=== PATIENT | female | born 1935 | race Caucasian/White ===

== ENCOUNTER → 2017-12-26 09:17 | Outpatient (BNVA) | payer MEDICARE, BC, SELFPAY | PROVIDERS: Visit Provider Nurse Practitioner Family | DX: R55 Syncope and collapse (principal); E83.42 Hypomagnesemia; Z45.018 Encounter for adjustment and management of other part of cardiac pacemaker; I12.9 Hypertensive chronic kidney disease with stage 1 through stage 4 chronic kidney disease, or unspecified chronic kidney disease; N18.3 Chronic kidney disease, stage 3 (moderate) | CPT/HCPCS: 93291; 99213 ==

== ENCOUNTER 2017-12-26 10:12 | Outpatient (CLI) | payer MEDICARE, BC, SELFPAY ==
[2017-12-26 11:20] LABS: Anion Gap 10.1 mmol/L (3-11); BUN 14 mg/dL (7-18); CO2 26.9 mmol/L (21.0-32.0); CREATININE 1.33 mg/dL (0.55-1.02); Calcium 9.4 mg/dL (8.5-10.1); Chloride 100 mmol/L (98-107); Glucose 141 mg/dL (70-100); Magnesium 1.4 mg/dL (1.8-2.4); Potassium 4.1 mmol/L (3.5-5.1); Sodium 137 mmol/L (136-145)
== END 2017-12-26 10:32 ==
PROVIDERS: PCP Nurse Practitioner Family; Visit Provider Nurse Practitioner Family
DX: I10 Essential (primary) hypertension (principal)
CPT/HCPCS: 36415; 80048; 93291; 83735; 99213

== ENCOUNTER 2018-02-16 22:08 | Emergency (ER) | payer MEDICARE, BC, SELFPAY ==
[2018-02-16 22:22] VITALS: BP 198/94; PULSE 94; RESP 18; TEMP 36.7; O2SAT 96
[2018-02-16 23:27] LABS: Absolute Eosinophil Count 0.05 k/cumm (0.0-0.7); Absolute Lymphocyte Count 0.49 k/cumm (1.2-3.4); Absolute Neutrophil Count 0.94 k/cumm (1.2-6.7); Eosinophils % 3.2; HCT 30.7 % (36.0-46.0); HGB 10.3 g/dL (12.0-15.5); Mean Corp. HGB Concentration 33.6 g/dL (32.0-36.0); Mean Corpuscular Hemoglobin 39.2 pg (27.0-33.0); Mean Corpuscular Volume 116.7 fL (80-95); Mean Platelet Volume 10.6 fL (8.0-11.0); Monocytes % 6.3; Neutrophils % 59.5; Platelet Count 147 x1000/uL (130-400); RBC 2.63 m/cumm (4.00-5.20); RBC Distribution Width 13.1 % (11.7-14.6)
--- NOTE | 2018-02-16 23:30 | W.ED.GENAD ---
Discharge Plan Disposition Patient Disposition: HOME Condition: Good Discharge Details Chief Complaint: Nausea/Vomit/Diar Clinical Impression: Nausea, vomiting and diarrhea, Hypomagnesemia, Leukopenia, Hypokalemia Primary Care Provider: Lindsay Diaz ED Provider: William Holguin [place] Meds and New Rx's Prescriptions: New ondansetron 4 mg tablet,disintegrating 4 mg PO QID PRN (Reason: nausea and vomiting) Qty: 5 RF: 0 Continue irbesartan 75 mg tablet 75 mg PO DAILY Qty: 135 RF: 3 magnesium L-lactate 84 mg tablet extended release 84 mg PO BID Qty: 180 RF: 3 cyanocobalamin (vitamin B-12) [Vitamin B-12] 1,000 MCG tablet 1,000 mcg PO DAILY RF: 0 calcium carbonate 500 MG tablet 4 tab.chew PO DAILY RF: 0 vkofjvfs-hfmr-kmb-folic acid [One Daily For Women] 1 EACH tablet 1 ea PO DAILY RF: 0 ascorbic acid (vitamin C) [Vitamin C] 500 MG tablet 500 mg PO DAILY RF: 0 cholecalciferol (vitamin D3) [Vitamin D3] 2,000 UNIT capsule 2,000 unit PO DAILY RF: 0 hydrochlorothiazide 25 MG tablet 25 mg PO DAILY Qty: 90 RF: 4 ibuprofen [Advil Liqui-Gel] 200 MG capsule 200 - 400 mg PO Q4H PRN PRNQty: 100 RF: 0 ranitidine HCl [Zantac] 150 mg Tablet 150 mg PO DAILY RF: 0 Discharge Instructions Instructions: Hypokalemia (ED), Acute Nausea and Vomiting (ED), Hypomagnesemia (ED) Additional Instructions: You may use Zofran as needed for nausea and vomiting. As long as you can drink fluids and stay hydrated you should do okay. If you develop high fever, persistent vomiting, abdominal pain or bloody diarrhea you should return. Follow-up with primary care next week. He will white blood cell count was a little lower than usual and should be rechecked in 1-2 weeks when you are feeling better. Referrals: Lindsay Diaz, [employer] SAFETY INSPECTOR [Primary Care Provider] - Medical Decision Making Patient here with complaint of nausea, vomiting, diarrhea today. She feels a little bit weak. There has been no fever. She has no abdominal pain. Her abdominal exam is benign. She has no chest pain or shortness of breath. We will go ahead and place an IV and give some fluid. We will check her labs and EKG. Will give Zofran for nausea. Patient laboratory studies significant for hypokalemia and hypomagnesia, both of which she has had previously. She is also leukopenic and anemia again both are chronic. Her ANC is a little lower than normal but she likely has viral gastroenteritis so this would not be unexpected. Troponin is negative. EKG is unchanged. Stool was obtained and is negative for C. difficile. Patient has had no emesis here. We will do a p.o. challenge. We will replace her magnesium and potassium IV. No indication for admission at this point. She has no abdominal pain. Can be discharged home once her electrolyte replacement therapy has finished. Medical Records Medical records reviewed: Yes I reviewed the patient's medical records. Lab Data Lab results reviewed: Yes I reviewed the patient's lab results. ECG Data Attestation: I personally reviewed and interpreted this ECG (s) as follows: Prior ECG tracings: available for review Interpretation: Normal sinus rhythm at a rate of 87. Normal axis and intervals. She has nonspecific ST changes and depression not significantly different from prior dated 06/01/2015. HPI General Mode of arrival: wheelchair. Date/Time Provider Initiated Documentation: 02/16/18 23:19. Limitations to Documentation: no limitations. Information obtained by: patient, family and old records reviewed. HPI Narrative: Patient is brought in by daughter for evaluation of nausea, vomiting, diarrhea today. Patient had one episode of emesis in the morning around 4. 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 During the rest of the day she seemed to be okay. This evening around 6 had another episode of emesis after she tried to take her nighttime medications. She then began having diarrhea again. Diarrhea was watery nonbloody. Vomit was nonbloody. She has no fevers or chills. She has no abdominal pain. She has no chest pain or shortness of breath. She feels a little bit weak. She has not been on antibiotics recently. She has not been around anyone ill she is aware of. She did participate in Thanksgiving dinner yesterday but no one else who ate with her is ill. There is been no travel. Related Data Home Medications Medication Instructions Recorded Confirmed calcium carbonate 4 tab.chew PO DAILY 06/19/12 02/16/18 cyanocobalamin (vitamin B-12) 1,000 mcg PO DAILY 06/19/12 02/16/18 [Vitamin B-12] sauxezjl-ajwx-mvw-folic acid [One 1 ea PO DAILY 06/19/12 02/16/18 Daily For Women] ibuprofen [Advil Liqui-Gel] 200 - 400 mg PO Q4H PRN PRN #100 06/03/15 01/24/18 cap ascorbic acid (vitamin C) [Vitamin 500 mg PO DAILY 07/30/15 02/16/18 C] cholecalciferol (vitamin D3) 2,000 unit PO DAILY 07/30/15 02/16/18 [Vitamin D3] hydrochlorothiazide 25 mg PO DAILY #90 tab-cap 05/30/17 02/16/18 irbesartan 75 mg tablet 75 mg PO DAILY #135 tab-cap 12/26/17 02/16/18 magnesium L-lactate ER 84 mg 84 mg PO BID #180 tab 12/26/17 02/16/18 tablet,extended release ranitidine HCl [Zantac] 150 mg PO DAILY 02/16/18 02/16/18 ondansetron 4 mg PO QID PRN #5 tab 02/17/18 Previous Rx's Medication Instructions Recorded ibuprofen [Advil Liqui-Gel] 200 - 400 mg PO Q4H PRN PRN #100 06/03/15 cap hydrochlorothiazide 25 mg PO DAILY #90 tab-cap 05/30/17 irbesartan 75 mg tablet 75 mg PO DAILY #135 tab-cap 12/26/17 magnesium L-lactate ER 84 mg 84 mg PO BID #180 tab 12/26/17 tablet,extended release ondansetron 4 mg PO QID PRN #5 tab 02/17/18 Allergies Allergy/AdvReac Type Severity Reaction Status Date / Time alendronate sodium AdvReac Intermediate Polymyalgia Unverified 02/16/18 22:25 amlodipine AdvReac Intermediate Peridontal Unverified 02/16/18 22:25 disease metoclopramide AdvReac Intermediate Shaky Unverified 02/16/18 22:25 metoprolol AdvReac Intermediate dizzy, Unverified 02/16/18 22:25 sore gums chlorthalidone AdvReac Unknown n/v Unverified 02/16/18 22:25 lisinopril AdvReac Unknown unknown rxn Unverified 02/16/18 22:25 Sulfa (Sulfonamide AdvReac Unknown Yeast Unverified 02/16/18 22:25 Antibiotics) Infection General Stated Complaint: Nausea/Vomit/Diar NATHANIEL: 2 Review of Systems Constitutional Denies chills, Denies fatigue, Denies fever(s), Reports headache(s) (mild), Reports malaise, Reports poor appetite and Reports weakness Eyes Denies eye discharge and Denies eye pain ENT Denies otalgia, Denies facial pain, Reports headache(s) (mild), Denies sinus pain and Denies sore throat Cardiovascular Denies chest pain, Denies diaphoresis, Denies syncope, Denies rapid heart rate, Reports pedal edema, Denies palpitations and Denies dyspnea Respiratory Denies chest congestion, Denies cough and Denies dyspnea Gastrointestinal Denies abdominal pain, Denies melena, Denies hematochezia, Reports diarrhea, Reports nausea, Reports vomiting and Denies hematemesis Genitourinary Denies dysuria and Denies flank pain Musculoskeletal Denies back pain, Denies myalgias and Denies arthralgias Integumentary/Breasts Denies rash and Reports sores Neurologic Denies confusion, Denies syncope, Reports headache(s) (mild), Denies focal weakness, Denies sensory deficit and Reports weakness Psychiatric Denies confusion Endocrine Denies fatigue and Denies palpitations PFSH Family History Father Heart disease Medical History Osteoporosis, unspecified (Chronic 07/01/11) Leukopenia (Chronic 06/06/14) Humeral fracture (Chronic 06/04/15) Syncope (Chronic 02/10/14) Hypomagnesemia (Chronic 07/04/14) Hyperlipidemia (Chronic 07/01/11) Essential hypertension (Chronic 12/20/12) Esophageal reflux (Chronic 07/01/11) Chronic kidney disease, stage III (moderate) (Chronic 07/24/12) HLD (hyperlipidemia) HTN (hypertension) Social History housing: house lives independently: Yes number of children: 4 current occupation: retired frequency: daily duration: < 15 minutes/day Smoking/Tobacco Use Status: Never alcohol intake: current alcohol intake frequency: 0-2 drinks per day substance use type: does not use Surgical History Extraction of cataract (Inactive 04/30/13) Pacemaker (Inactive 10/27/15) left eye (Inactive) Exam Const General: cooperative, comfortable and no acute distress Orientation: alert and oriented x3 HENWA Head: normocephalic and atraumatic Mouth: moist mucous membranes Eyes Conjunctivae: conjunctivae normal Sclera: sclerae normal Neck Neck: normal visual inspection, trachea midline and supple Resp Effort & Inspection: normal respiratory effort Auscultation: clear to auscultation bilaterally Cardio Rate: regular rate Rhythm: regular rhythm Heart Sounds: S1 normal and S2 normal Pulses: radial pulses present GI Inspection: normal to inspection and non-distended Palpation: soft, not firm, no guarding and nontender Auscultation: hyperactive bowel sounds Skin General skin exam: no erythema Rashes: no rashes Wounds: wounds noted (healing wound from skin cancer excision on right charles) Neuro General: alert, oriented x3, no focal motor deficits and CN's II-XI intact bilaterally Extrem General: no calf tenderness and pedal edema Course Vital Signs Temperature 98.1 F 02/16/18 22:22 Pulse 94 H 02/16/18 22:22 Respiratory Rate 18 02/16/18 22:22 Blood Pressure 198/94 H 02/16/18 22:22 Pulse Oximetry 96 02/16/18 22:22 Temperature 98.1 F 02/16/18 22:22 Temperature Source Temporal Artery Scan 02/16/18 22:22 Pulse 94 H 02/16/18 22:22 Respiratory Rate 18 02/16/18 22:22 Respiratory Effort Non-Labored 02/16/18 22:27 Blood Pressure 198/94 H 02/16/18 22:22 Blood Pressure Position Sitting 02/16/18 22:22 Pulse Oximetry 96 02/16/18 22:22 Oxygen Delivery Method Room Air 02/16/18 22:22 Oxygen Flow Rate 0 02/16/18 22:22 Pain Level 0 02/16/18 22:22
[2018-02-16 23:31] LABS: White Blood Cell Count 1.58 k/cumm (4.4-10.8)
[2018-02-16] MEDS: Lactated Ringers 1,000 ML 1000 ML IV (23:37)
[2018-02-16] MEDS: Ondansetron 4 MG/2 ML VIAL IVP (23:37)
[2018-02-16 23:42] LABS: ALT 40 U/L (12-78); AST 36 U/L (15-37); Alkaline Phosphatase 65 U/L (46-116); BUN 17 mg/dL (7-18); Bilirubin, Total 0.8 mg/dL (0.2-1.0); CREATININE 1.28 mg/dL (0.55-1.02); Calcium 9.7 mg/dL (8.5-10.1); Chloride 100 mmol/L (98-107); Estimated GFR 39.92 (mL/min/1.73m2); Glucose 146 mg/dL (70-100); Magnesium 1.4 mg/dL (1.8-2.4); Potassium 3.1 mmol/L (3.5-5.1); Sodium 139 mmol/L (136-145); Total Protein 8.1 g/dL (6.4-8.2)
--- NOTE | 2018-02-16 23:46 | ED.GENADUL_ITS ---
Discharge Plan Disposition Patient Disposition: HOME Condition: Good Discharge Details Chief Complaint: Nausea/Vomit/Diar Clinical Impression: Nausea, vomiting and diarrhea, Hypomagnesemia, Leukopenia, Hypokalemia Primary Care Provider: Lindsay Diaz ED Provider: William Holguin [place] Meds and New Rx's Prescriptions: New ondansetron 4 mg tablet,disintegrating 4 mg PO QID PRN (Reason: nausea and vomiting) Qty: 5 RF: 0 Continue irbesartan 75 mg tablet 75 mg PO DAILY Qty: 135 RF: 3 magnesium L-lactate 84 mg tablet extended release 84 mg PO BID Qty: 180 RF: 3 cyanocobalamin (vitamin B-12) [Vitamin B-12] 1,000 MCG tablet 1,000 mcg PO DAILY RF: 0 calcium carbonate 500 MG tablet 4 tab.chew PO DAILY RF: 0 ohxvegzt-grin-dgp-folic acid [One Daily For Women] 1 EACH tablet 1 ea PO DAILY RF: 0 ascorbic acid (vitamin C) [Vitamin C] 500 MG tablet 500 mg PO DAILY RF: 0 cholecalciferol (vitamin D3) [Vitamin D3] 2,000 UNIT capsule 2,000 unit PO DAILY RF: 0 hydrochlorothiazide 25 MG tablet 25 mg PO DAILY Qty: 90 RF: 4 ibuprofen [Advil Liqui-Gel] 200 MG capsule 200 - 400 mg PO Q4H PRN PRNQty: 100 RF: 0 ranitidine HCl [Zantac] 150 mg Tablet 150 mg PO DAILY RF: 0 Discharge Instructions Instructions: Hypokalemia (ED), Acute Nausea and Vomiting (ED), Hypomagnesemia (ED) Additional Instructions: You may use Zofran as needed for nausea and vomiting. As long as you can drink fluids and stay hydrated you should do okay. If you develop high fever, persistent vomiting, abdominal pain or bloody diarrhea you should return. Follow-up with primary care next week. He will white blood cell count was a little lower than usual and should be rechecked in 1-2 weeks when you are feeling better. Referrals: Lindsay Diaz, UTILIZATION REVIEW RN [Primary Care Provider] - Medical Decision Making Patient here with complaint of nausea, vomiting, diarrhea today. She feels a little bit weak. There has been no fever. She has no abdominal pain. Her abdominal exam is benign. She has no chest pain or shortness of breath. We will go ahead and place an IV and give some fluid. We will check her labs and EKG. Will give Zofran for nausea. Patient laboratory studies significant for hypokalemia and hypomagnesia, both of which she has had previously. She is also leukopenic and anemia again both are chronic. Her ANC is a little lower than normal but she likely has viral gastroenteritis so this would not be unexpected. Troponin is negative. EKG is unchanged. Stool was obtained and is negative for C. difficile. Patient has had no emesis here. We will do a p.o. challenge. We will replace her magnesium and potassium IV. No indication for admission at this point. She has no abdominal pain. Can be discharged home once her electrolyte replacement therapy has finished. Medical Records Medical records reviewed: Yes I reviewed the patient's medical records. Lab Data Lab results reviewed: Yes I reviewed the patient's lab results. ECG Data Attestation: I personally reviewed and interpreted this ECG (s) as follows: Prior ECG tracings: available for review Interpretation: Normal sinus rhythm at a rate of 87. Normal axis and intervals. She has nonspecific ST changes and depression not significantly different from prior dated 06/01/2015. HPI General Mode of arrival: wheelchair . Date/Time Provider Initiated Documentation: 02/16/18 23:19 . Limitations to Documentation: no limitations . Information obtained by: patient, family and old records reviewed . HPI Narrative: Patient is brought in by daughter for evaluation of nausea, vomiting, diarrhea today. Patient had one episode of emesis in the morning around 4. 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 During the rest of the day she seemed to be okay. This evening around 6 had another episode of emesis after she tried to take her nighttime medications. She then began having diarrhea again. Diarrhea was watery nonbloody. Vomit was nonbloody. She has no fevers or chills. She has no abdominal pain. She has no chest pain or shortness of breath. She feels a little bit weak. She has not been on antibiotics recently. She has not been around anyone ill she is aware of. She did participate in Thanksgiving dinner yesterday but no one else who ate with her is ill. There is been no travel. Related Data Home Medications Medication Instructions Recorded Confirmed calcium carbonate 4 tab.chew PO DAILY 06/19/12 02/16/18 cyanocobalamin (vitamin B-12) 1,000 mcg PO DAILY 06/19/12 02/16/18 [Vitamin B-12] obypzcmz-afaz-nhb-folic acid [One 1 ea PO DAILY 06/19/12 02/16/18 Daily For Women] ibuprofen [Advil Liqui-Gel] 200 - 400 mg PO Q4H PRN PRN #100 06/03/15 01/24/18 cap ascorbic acid (vitamin C) [Vitamin 500 mg PO DAILY 07/30/15 02/16/18 C] cholecalciferol (vitamin D3) 2,000 unit PO DAILY 07/30/15 02/16/18 [Vitamin D3] hydrochlorothiazide 25 mg PO DAILY #90 tab-cap 05/30/17 02/16/18 irbesartan 75 mg tablet 75 mg PO DAILY #135 tab-cap 12/26/17 02/16/18 magnesium L-lactate ER 84 mg 84 mg PO BID #180 tab 12/26/17 02/16/18 tablet,extended release ranitidine HCl [Zantac] 150 mg PO DAILY 02/16/18 02/16/18 ondansetron 4 mg PO QID PRN #5 tab 02/17/18 Previous Rx's Medication Instructions Recorded ibuprofen [Advil Liqui-Gel] 200 - 400 mg PO Q4H PRN PRN #100 06/03/15 cap hydrochlorothiazide 25 mg PO DAILY #90 tab-cap 05/30/17 irbesartan 75 mg tablet 75 mg PO DAILY #135 tab-cap 12/26/17 magnesium L-lactate ER 84 mg 84 mg PO BID #180 tab 12/26/17 tablet,extended release ondansetron 4 mg PO QID PRN #5 tab 02/17/18 Allergies Allergy/AdvReac Type Severity Reaction Status Date / Time alendronate sodium AdvReac Intermediate Polymyalgia Unverified 02/16/18 22:25 amlodipine AdvReac Intermediate Peridontal Unverified 02/16/18 22:25 disease metoclopramide AdvReac Intermediate Shaky Unverified 02/16/18 22:25 metoprolol AdvReac Intermediate dizzy, Unverified 02/16/18 22:25 sore gums chlorthalidone AdvReac Unknown n/v Unverified 02/16/18 22:25 lisinopril AdvReac Unknown unknown rxn Unverified 02/16/18 22:25 Sulfa (Sulfonamide AdvReac Unknown Yeast Unverified 02/16/18 22:25 Antibiotics) Infection General Stated Complaint: Nausea/Vomit/Diar NATHANIEL: 2 Review of Systems Constitutional Denies chills, Denies fatigue, Denies fever(s), Reports headache(s) (mild), Reports malaise, Reports poor appetite and Reports weakness Eyes Denies eye discharge and Denies eye pain ENT Denies otalgia, Denies facial pain, Reports headache(s) (mild), Denies sinus pain and Denies sore throat Cardiovascular Denies chest pain, Denies diaphoresis, Denies syncope, Denies rapid heart rate, Reports pedal edema, Denies palpitations and Denies dyspnea Respiratory Denies chest congestion, Denies cough and Denies dyspnea Gastrointestinal Denies abdominal pain, Denies melena, Denies hematochezia, Reports diarrhea, Reports nausea, Reports vomiting and Denies hematemesis Genitourinary Denies dysuria and Denies flank pain Musculoskeletal Denies back pain, Denies myalgias and Denies arthralgias Integumentary/Breasts Denies rash and Reports sores Neurologic Denies confusion, Denies syncope, Reports headache(s) (mild), Denies focal weakness, Denies sensory deficit and Reports weakness Psychiatric Denies confusion Endocrine Denies fatigue and Denies palpitations PFSH Family History Father Heart disease Medical History Osteoporosis, unspecified (Chronic 07/01/11) Leukopenia (Chronic 06/06/14) Humeral fracture (Chronic 06/04/15) Syncope (Chronic 02/10/14) Hypomagnesemia (Chronic 07/04/14) Hyperlipidemia (Chronic 07/01/11) Essential hypertension (Chronic 12/20/12) Esophageal reflux (Chronic 07/01/11) Chronic kidney disease, stage III (moderate) (Chronic 07/24/12) HLD (hyperlipidemia) HTN (hypertension) Social History housing: house lives independently: Yes number of children: 4 current occupation: retired frequency: daily duration: < 15 minutes/day Smoking/Tobacco Use Status: Never alcohol intake: current alcohol intake frequency: 0-2 drinks per day substance use type: does not use Surgical History Extraction of cataract (Inactive 04/30/13) Pacemaker (Inactive 10/27/15) left eye (Inactive) Exam Const General: cooperative, comfortable and no acute distress Orientation: alert and oriented x3 HENNE Head: normocephalic and atraumatic Mouth: moist mucous membranes Eyes Conjunctivae: conjunctivae normal Sclera: sclerae normal Neck Neck: normal visual inspection, trachea midline and supple Resp Effort & Inspection: normal respiratory effort Auscultation: clear to auscultation bilaterally Cardio Rate: regular rate Rhythm: regular rhythm Heart Sounds: S1 normal and S2 normal Pulses: radial pulses present GI Inspection: normal to inspection and non-distended Palpation: soft, not firm, no guarding and nontender Auscultation: hyperactive bowel sounds Skin General skin exam: no erythema Rashes: no rashes Wounds: wounds noted (healing wound from skin cancer excision on right charles) Neuro General: alert, oriented x3, no focal motor deficits and CN's II-XI intact bilaterally Extrem General: no calf tenderness and pedal edema Course Vital Signs Temperature 98.1 F 02/16/18 22:22 Pulse 94 H 02/16/18 22:22 Respiratory Rate 18 02/16/18 22:22 Blood Pressure 198/94 H 02/16/18 22:22 Pulse Oximetry 96 02/16/18 22:22 Temperature 98.1 F 02/16/18 22:22 Temperature Source Temporal Artery Scan 02/16/18 22:22 Pulse 94 H 02/16/18 22:22 Respiratory Rate 18 02/16/18 22:22 Respiratory Effort Non-Labored 02/16/18 22:27 Blood Pressure 198/94 H 02/16/18 22:22 Blood Pressure Position Sitting 02/16/18 22:22 Pulse Oximetry 96 02/16/18 22:22 Oxygen Delivery Method Room Air 02/16/18 22:22 Oxygen Flow Rate 0 02/16/18 22:22 Pain Level 0 02/16/18 22:22
[2018-02-16 23:48] LABS: Macrocytosis 1+; Polychromasia Present; Troponin I < 0.02 ng/mL (0.00-0.06)
[2018-02-17] MEDS: MAGNESIUM SULFATE 2 GM/50 ML BAG IVPB (01:05)
[2018-02-17] MEDS: Acetaminophen 325 MG TAB 650 MG PO (01:10)
[2018-02-17] MEDS: POTASSIUM CHLORIDE 10 MEQ/100 ML BAG 100 MEQ IVPB (01:15)
[2018-02-17 07:07] LABS: Diff Comment Agrees w/ Instrument
== END 2018-02-17 02:43 | disposition home or self-care (01) ==
LOC: ER 02-17 02:46
PROVIDERS: Emergency Provider Emergency Medicine; PCP Nurse Practitioner
DX: R11.2 Nausea with vomiting, unspecified (principal); R19.7 Diarrhea, unspecified; E83.42 Hypomagnesemia; E87.6 Hypokalemia; D72.819 Decreased white blood cell count, unspecified; I12.9 Hypertensive chronic kidney disease with stage 1 through stage 4 chronic kidney disease, or unspecified chronic kidney disease; N18.3 Chronic kidney disease, stage 3 (moderate)
CPT/HCPCS: 36415; 80053; 93005; 96361; 96365; 96368; 96375; 99284; 83735; 84484; 85025; 87324; 93010; 99285; J2405; J3480

== ENCOUNTER 2018-02-19 11:26 | Emergency (ER) | payer MEDICARE, BC, SELFPAY ==
[2018-02-19 11:38] VITALS: BP 189/86; PULSE 103; RESP 18; TEMP 36; O2SAT 97
--- NOTE | 2018-02-19 12:18 | DI.CT_ITS ---
SYMPTOMS/DIAGNOSIS: EPIGASTRIC RIGHT UPPER QUADRANT AND LOWER ABDOMINAL PAIN CT OF THE ABDOMEN AND PELVIS: Images were performed from the lung bases through the ischial tuberosities after IV contrast. The exam is mildly limited by motion in the mid portion of the scan. The lungs show mild fibrotic changes. There is diffuse decreased attenuation of the liver consistent with fatty infiltration. There is motion at the level of the gallbladder. The gallbladder appeared normal on recent ultrasound. The duodenum is also not well evaluated due to motion. There are diverticula seen in the descending and sigmoid colon. There are no surrounding inflammatory changes. No small bowel dilatation is seen. The appendix appears normal. There is no free air or free fluid. The kidneys, pancreas and urinary bladder are unremarkable. The uterus and ovaries are also within normal limits. There is a small fatty-containing umbilical hernia. The aorta shows calcification and is normal in diameter. IMPRESSION: Diverticulosis without evidence of diverticulitis. Fatty infiltration of the liver. The pancreas, gallbladder and duodenum are not well evaluated due to motion.
--- NOTE | 2018-02-19 12:26 | ED.GENADUL_ITS ---
Discharge Plan Disposition Patient Disposition: HOME Condition: Improving Discharge Details Chief Complaint: Nausea/Vomit/Diar Clinical Impression: Vomiting and diarrhea Primary Care Provider: Lindsay Diaz ED Provider: Ariadna Clayton Home Meds and New Rx's Prescriptions: New ondansetron HCl [Zofran] 4 mg tablet 4 mg PO TID PRN (Reason: nausea and vomiting) 5 Days Qty: 4 RF: 0 Continue irbesartan 75 mg tablet 75 mg PO DAILY Qty: 135 RF: 3 magnesium L-lactate 84 mg tablet extended release 84 mg PO BID Qty: 180 RF: 3 cyanocobalamin (vitamin B-12) [Vitamin B-12] 1,000 MCG tablet 1,000 mcg PO DAILY RF: 0 calcium carbonate 500 MG tablet 4 tab.chew PO DAILY RF: 0 iqmayzfx-rrdt-mwp-folic acid [One Daily For Women] 1 EACH tablet 1 ea PO DAILY RF: 0 ascorbic acid (vitamin C) [Vitamin C] 500 MG tablet 500 mg PO DAILY RF: 0 cholecalciferol (vitamin D3) [Vitamin D3] 2,000 UNIT capsule 2,000 unit PO DAILY RF: 0 hydrochlorothiazide 25 MG tablet 25 mg PO DAILY Qty: 90 RF: 4 ibuprofen [Advil Liqui-Gel] 200 MG capsule 200 - 400 mg PO Q4H PRN PRNQty: 100 RF: 0 ranitidine HCl [Zantac] 150 mg Tablet 150 mg PO DAILY RF: 0 ondansetron 4 mg tablet,disintegrating 4 mg PO QID PRN (Reason: nausea and vomiting) Qty: 5 RF: 0 Discharge Instructions Instructions: Acute Nausea and Vomiting (ED), Acute Diarrhea (ED) Additional Instructions: Drink plenty of fluids and get plenty of rest. Take Zofran as needed and directed for any nausea or vomiting. Take your Zantac daily as directed. Follow-up with your primary care doctor in 1 week for reevaluation. Return immediately to the emergency department any worsening or new concerning symptoms. Discharge Data Discharge Date/Time-TO BE ENTERED AT DEPARTURE: 02/19/18 17:35 Discharge Physician: Ariadna Clayton Medical Decision Making 82yo F w/ vomiting, diarrhea, and epigastric pain x 4 days. No vomiting or diarrhea for 2 days. Seen here 3 days ago for same and was discharged to home with zofran for viral illness. HR 103, Afebrile. Pt has significant tenderness to palpation in epigastric region and RUQ. Differential diagnoses includes, gastritis, cholecystitis, PUD, colitis, gastroenteritis, diverticulitis, UTI. Due to pt's age, will do cardiac workup and check labs, UA, EKG, US GB, CT abd, and give bolus IVF, and dose of compazine, pepcid. 1505 -- pt still c/o nausea and epigastric pain. Labs and imaging reviewed. White blood cell count 1.82, hemoglobin 10.6 - similar to baseline (and improved compared to 02/16) due to chronic leukopenia. CT abdomen and gallbladder ultrasound negative for acute findings. Urinalysis pending. We will give patient a dose of Zofran IV and GI cocktail and reassess. 1645 -- pt feels much better and is requesting to go home. Pt was able to drink and eat and no further nausea or vomiting. Will give 2 tabs of Zofran to go as well as prescription. It was discussed with patient that her Zofran did not work at home, but she feels like her symptoms were more pain than nausea. She states she did not have any relief from Compazine here and would rather Zofran for home. Discussed urine results with patient. She has no fever or urinary symptoms. Patient agrees with plan for holding on antibiotics until urine culture results. 1730 --just prior to discharge, heart rate 110s after sat up. Discussed with patient that would recommend increased p.o. fluids or can give more IV fluids and reassess but she would rather go home at this time. Patient states she feels much better. Patient was instructed on continuing fluids and to return here with any worsening symptoms. Lab Data Lab results reviewed: Yes I reviewed the patient's lab results. ECG Data Attestation: I personally reviewed and interpreted this ECG (s) as follows: Interpretation: Rate 96, sinus, less than [address] depression noted in V4 V5 and V6 which is seen in previous EKG. Nondiagnostic EKG. Q TC 455. QRS 94 HPI General Mode of arrival: ambulatory . Date/Time Provider Initiated Documentation: 02/19/18 12:02 . Limitations to Documentation: no limitations . Information obtained by: patient . HPI Narrative: Pt is an 82yo F who presents to the ED w/ a c/o vomiting and diarrhea for the past 4 days. Patient states she has had no vomiting or diarrhea for the past 2 days, but had a somewhat loose stool this morning. She states she is still with nausea and epigastric pain and feels generally weak. She describes the pain as constant, crampy and currently 2/10. Patient was seen here 3 days ago for the same complaint and had lab work and was discharged home with a possible viral illness and sent with Zoan. Patient denies any relief with Zofran over the past 2 days. She states she is not eating much and not drinking as much water she should. She denies any fever, rectal bleeding, urinary symptoms, chest pain, shortness of breath, recent antibiotics, recent travel or sick contacts. Past medical history: Hypertension, hyperlipidemia, chronic kidney disease stage II, chronic leukopenia Surgical history: Cataract, pacemaker Social history: Denies tobacco, alcohol or drugs Medications: See list Allergies: See list PCP: Lindasy Diaz Related Data Home Medications Medication Instructions Recorded Confirmed calcium carbonate 4 tab.chew PO DAILY 06/19/12 02/19/18 cyanocobalamin (vitamin B-12) 1,000 mcg PO DAILY 06/19/12 02/19/18 [Vitamin B-12] tmgsquhz-dotk-mce-folic acid [One 1 ea PO DAILY 06/19/12 02/19/18 Daily For Women] ibuprofen [Advil Liqui-Gel] 200 - 400 mg PO Q4H PRN PRN #100 06/03/15 02/19/18 cap ascorbic acid (vitamin C) [Vitamin 500 mg PO DAILY 07/30/15 02/19/18 C] cholecalciferol (vitamin D3) 2,000 unit PO DAILY 07/30/15 02/19/18 [Vitamin D3] hydrochlorothiazide 25 mg PO DAILY #90 tab-cap 05/30/17 02/19/18 irbesartan 75 mg tablet 75 mg PO DAILY #135 tab-cap 12/26/17 02/19/18 magnesium L-lactate ER 84 mg 84 mg PO BID #180 tab 12/26/17 02/19/18 tablet,extended release ranitidine HCl [Zantac] 150 mg PO DAILY 02/16/18 02/19/18 ondansetron 4 mg PO QID PRN #5 tab 02/17/18 02/19/18 ondansetron HCl [Zofran] 4 mg PO TID PRN 5 Days #4 tab 02/19/18 Previous Rx's Medication Instructions Recorded ibuprofen [Advil Liqui-Gel] 200 - 400 mg PO Q4H PRN PRN #100 06/03/15 cap hydrochlorothiazide 25 mg PO DAILY #90 tab-cap 05/30/17 irbesartan 75 mg tablet 75 mg PO DAILY #135 tab-cap 12/26/17 magnesium L-lactate ER 84 mg 84 mg PO BID #180 tab 12/26/17 tablet,extended release ondansetron 4 mg PO QID PRN #5 tab 02/17/18 ondansetron HCl [Zofran] 4 mg PO TID PRN 5 Days #4 tab 02/19/18 Allergies Allergy/AdvReac Type Severity Reaction Status Date / Time alendronate sodium AdvReac Intermediate Polymyalgia Unverified 02/19/18 14:32 amlodipine AdvReac Intermediate Peridontal Unverified 02/19/18 14:32 disease metoclopramide AdvReac Intermediate Shaky Unverified 02/19/18 14:32 metoprolol AdvReac Intermediate dizzy, Unverified 02/19/18 14:32 sore gums chlorthalidone AdvReac Unknown n/v Unverified 02/19/18 14:32 lisinopril AdvReac Unknown unknown rxn Unverified 02/19/18 14:32 Sulfa (Sulfonamide AdvReac Unknown Yeast Unverified 02/19/18 14:32 Antibiotics) Infection General Stated Complaint: Nausea/Vomit/Diar NATHANIEL: 3 Review of Systems Review of Systems All systems reviewed & are unremarkable except as noted in HPI and below Constitutional Denies chills, Denies excessive sweating, Reports fatigue, Denies fever(s), Reports weakness and Denies weight loss Eyes Reports system reviewed and no additional complaints, except as docu and Denies blurry vision ENT Denies vertigo, Denies dizziness, Denies otalgia, Denies nasal congestion, Denies sore throat and Denies throat swelling Cardiovascular Denies chest pain, Denies syncope, Denies rapid heart rate and Denies dyspnea Respiratory Denies dyspnea Gastrointestinal Reports abdominal pain, Denies diarrhea and Denies vomiting Genitourinary Denies hematuria, Denies dysuria and Denies flank pain Musculoskeletal Denies back pain and Denies joint swelling Integumentary/Breasts Denies lesions and Denies rash Neurologic Denies behavioral changes, Denies confusion, Denies vertigo, Denies dizziness, Denies syncope and Reports weakness Psychiatric Denies behavioral changes, Denies confusion and Denies depression Endocrine Denies excessive sweating and Reports fatigue Hematologic/Lymphatic Denies easy bruising and Denies lymphadenopathy Allergic/Immunologic Denies throat swelling PFSH Family History Father Heart disease Medical History Osteoporosis, unspecified (Chronic 07/01/11) Leukopenia (Chronic 06/06/14) Humeral fracture (Chronic 06/04/15) Syncope (Chronic 02/10/14) Hypomagnesemia (Chronic 07/04/14) Hyperlipidemia (Chronic 07/01/11) Essential hypertension (Chronic 12/20/12) Esophageal reflux (Chronic 07/01/11) Chronic kidney disease, stage III (moderate) (Chronic 07/24/12) HLD (hyperlipidemia) HTN (hypertension) Social History housing: house lives independently: Yes number of children: 4 current occupation: retired frequency: daily duration: < 15 minutes/day Smoking/Tobacco Use Status: Never alcohol intake: current alcohol intake frequency: 0-2 drinks per day substance use type: does not use Surgical History Extraction of cataract (Inactive 04/30/13) Pacemaker (Inactive 10/27/15) left eye (Inactive) Exam Const General: cooperative and healthy appearing Orientation: alert and awake HENPR Head: normal to inspection Ears: hearing grossly normal bilaterally, external ears normal and TM's abnormal bilaterally General nose exam: external nose normal Face and sinus: normal facial exam Mouth: oral mucosae normal Eyes General: appearance normal, both eyes and all related structures Eyelids: eyelids normal EOM: EOM intact bilaterally Neck Neck: normal visual inspection Lymphatic: no lymphadenopathy noted Chest Chest: normal inspection of the chest Resp Effort & Inspection: normal respiratory effort and able to speak in complete sentences Auscultation: clear to auscultation bilaterally Cardio Rate: regular rate Rhythm: regular rhythm GI Inspection: normal to inspection Palpation: soft, not firm, no guarding, no hepatosplenomegaly, no masses and tender in the epigastrum, in the RUQ and suprapubicly Auscultation: normal bowel sounds Back/Spine/Pelvis Back: no CVA tenderness Skin General skin exam: no rashes or lesions noted Neuro General: alert and awake Cognition: normal cognition Speech: speech normal Gait: normal gait Motor: muscle tone normal throughout Sensory Exam: no sensory deficits noted Extrem General: normal to inspection, full ROM, normal capillary refill and no edema Psych Appearance: grossly normal Mental Status: mental status grossly normal Speech and Movement: speech and movement normal Affect: normal affect Thought Process: normal Course Vital Signs Temperature 96.8 F L 02/19/18 11:38 Pulse 103 H 02/19/18 11:38 Respiratory Rate 18 02/19/18 11:38 Pulse Oximetry 97 02/19/18 11:38 Temperature 96.8 F L 02/19/18 11:38 Temperature Source Temporal Artery Scan 02/19/18 11:38 Pulse 103 H 02/19/18 11:38 Respiratory Rate 18 02/19/18 11:38 Pulse Oximetry 97 02/19/18 11:38 Oxygen Delivery Method Room Air 02/19/18 11:38 Oxygen Flow Rate 0 02/19/18 11:38 Pain Level 3 02/19/18 11:38
--- NOTE | 2018-02-19 12:29 | DI.US_ITS ---
SYMPTOMS/DIAGNOSIS: RIGHT UPPER ABDOMINAL PAIN, ? ACUTE CHOLECYSTITIS RIGHT UPPER QUADRANT ULTRASOUND: Comparison is made with December,. There is mild fatty infiltration of the liver. The posterior portions of the liver are not ideally seen. The gallbladder has a normal appearance. No gallstones or gallbladder wall thickening is present. There is no evidence of biliary dilatation. IMPRESSION: Fatty infiltration of the liver. Normal-appearing gallbladder.
[2018-02-19] MEDS: Normal Saline 500 ML IV (13:28)
[2018-02-19 13:36] LABS: Absolute Eosinophil Count 0.04 k/cumm (0.0-0.7); Absolute Lymphocyte Count 0.49 k/cumm (1.2-3.4); Absolute Monocyte Count 0.12 k/cumm (0.11-0.7); Absolute Neutrophil Count 1.17 k/cumm (1.2-6.7); Eosinophils % 2.2; HCT 31.1 % (36.0-46.0); HGB 10.6 g/dL (12.0-15.5); Lymphocytes % 26.9; Mean Corp. HGB Concentration 34.1 g/dL (32.0-36.0); Mean Corpuscular Hemoglobin 40.2 pg (27.0-33.0); Mean Corpuscular Volume 117.8 fL (80-95); Mean Platelet Volume 10.7 fL (8.0-11.0); Monocytes % 6.6; Neutrophils % 64.3; RBC 2.64 m/cumm (4.00-5.20); RBC Distribution Width 13.1 % (11.7-14.6)
[2018-02-19 13:39] LABS: White Blood Cell Count 1.82 k/cumm (4.4-10.8)
[2018-02-19 13:51] LABS: ALT 40 U/L (12-78); AST 40 U/L (15-37); Albumin 3.7 g/dL (3.4-5.0); Alkaline Phosphatase 65 U/L (46-116); Anion Gap 10.7 mmol/L (3-11); BUN 23 mg/dL (7-18); Bilirubin, Total 0.6 mg/dL (0.2-1.0); CO2 25.3 mmol/L (21.0-32.0); CREATININE 1.36 mg/dL (0.55-1.02); Chloride 102 mmol/L (98-107); Estimated GFR 37.23 (mL/min/1.73m2); Glucose 109 mg/dL (70-100); Potassium 3.6 mmol/L (3.5-5.1); Sodium 138 mmol/L (136-145); Total Protein 8.1 g/dL (6.4-8.2)
[2018-02-19 13:52] LABS: Troponin I < 0.02 ng/mL (0.00-0.06)
[2018-02-19 14:06] LABS: Lipase 222 U/L (73-393); Magnesium 1.9 mg/dL (1.8-2.4)
[2018-02-19 14:10] LABS: Basophilic Stippling Present; Diff Comment Agrees w/ Instrument; Macrocytosis 2+; Polychromasia Present
[2018-02-19 14:11] LABS: Platelet Count 147 x1000/uL (130-400)
[2018-02-19] MEDS: FAMOTIDINE 20 MG/50 ML BAG 200 MG IVPB (14:19)
[2018-02-19] MEDS: Prochlorperazine 10 MG/2 ML VIAL IVP (14:22)
[2018-02-19 14:59] LABS: Bilirubin Negative (Negative); Blood Trace-intact (Negative); Clarity Sl Cloudy; Glucose Negative (Negative); Ketones Negative (Negative); Leukocyte Esterase Moderate (Negative); Nitrite Negative (Negative); Urobilinogen 0.2 EU/dL (Up TO 0.2)
[2018-02-19 15:19] LABS: Bacteria Moderate HPF (Negative); C & S Indicated? Yes; Casts Negative LPF (Negative); Crystals Negative HPF (Negative); Epithelial Cells Moderate HPF (Negative); Mucus Negative (Negative); Other Cells Rare Renal (Negative); WBC >50 HPF (0-5)
[2018-02-19] MEDS: Hydrochlorothiazide 25 MG TAB PO (15:53)
[2018-02-19] MEDS: Ondansetron 4 MG/2 ML VIAL IVP (15:53)
--- NOTE | 2018-02-19 16:26 | NUR.NOTE ---
food trial performed on PT. PT states that she no longer has nausea, the food is good and I feel way way better than when i came in Nursing Note:
[2018-02-19] MEDS: Ondansetron O.D.T. 4 MG TABEF 8 MG PO (17:30)
[2018-02-19 17:31] VITALS: BP 190/95; PULSE 104; RESP 16; TEMP 37.2; O2SAT 69
== END 2018-02-19 17:35 | disposition home or self-care (01) ==
PROVIDERS: Emergency Provider Physician Assistant; PCP Nurse Practitioner
DX: R11.2 Nausea with vomiting, unspecified (principal); R10.13 Epigastric pain; I10 Essential (primary) hypertension
CPT/HCPCS: 36415; 80053; 83690; 93005; 96361; 96374; 96375; 99285; 74177; 76705; 81003; 81015; 83735; 84484; 85025; 87086; 93010; 99284; J0780; J2405

== ENCOUNTER → 2018-04-10 10:21 | Outpatient (BNVA) | payer MEDICARE, BC, SELFPAY | PROVIDERS: PCP Nurse Practitioner; Visit Provider Nurse Practitioner Primary Care | DX: R55 Syncope and collapse (principal); I12.9 Hypertensive chronic kidney disease with stage 1 through stage 4 chronic kidney disease, or unspecified chronic kidney disease; Z45.09 Encounter for adjustment and management of other cardiac device; N18.3 Chronic kidney disease, stage 3 (moderate) | CPT/HCPCS: 93291; 99213 ==

== ENCOUNTER → 2018-08-14 11:53 | Outpatient (BNVA) | payer MEDICARE, BC, SELFPAY | PROVIDERS: PCP Nurse Practitioner; Visit Provider Nurse Practitioner Primary Care | DX: R55 Syncope and collapse (principal); E78.5 Hyperlipidemia, unspecified; I12.9 Hypertensive chronic kidney disease with stage 1 through stage 4 chronic kidney disease, or unspecified chronic kidney disease; Z45.09 Encounter for adjustment and management of other cardiac device; N18.3 Chronic kidney disease, stage 3 (moderate) | CPT/HCPCS: 93291; 99213 ==

== ENCOUNTER 2018-08-14 12:41 | Outpatient (CLI) | payer MEDICARE, BC, SELFPAY ==
[2018-08-14 13:52] LABS: Anion Gap 13.1 mmol/L (3-11); BUN 25 mg/dL (7-18); CO2 25.9 mmol/L (21.0-32.0); CREATININE 1.57 mg/dL (0.55-1.02); Calcium 9.8 mg/dL (8.5-10.1); Chloride 99 mmol/L (98-107); Estimated GFR 31.54 (mL/min/1.73m2); Glucose 135 mg/dL (70-100); Potassium 3.4 mmol/L (3.5-5.1); Sodium 138 mmol/L (136-145)
== END 2018-08-14 13:01 ==
PROVIDERS: PCP Nurse Practitioner; Visit Provider Nurse Practitioner Primary Care
DX: I10 Essential (primary) hypertension (principal); R55 Syncope and collapse; E78.5 Hyperlipidemia, unspecified; Z45.09 Encounter for adjustment and management of other cardiac device; I12.9 Hypertensive chronic kidney disease with stage 1 through stage 4 chronic kidney disease, or unspecified chronic kidney disease; N18.3 Chronic kidney disease, stage 3 (moderate)
CPT/HCPCS: 36415; 80048; 93291; 99213

== ENCOUNTER 2019-03-07 13:51 | Outpatient (REF) | payer MEDICARE, BC, SELFPAY ==
[2019-03-07 18:23] LABS: HCT 27.3 % (36.0-46.0); HGB 8.9 g/dL (12.0-15.5); Mean Corp. HGB Concentration 32.6 g/dL (32.0-36.0); Mean Corpuscular Hemoglobin 37.9 pg (27.0-33.0); Mean Corpuscular Volume 116.2 fL (80-95); Mean Platelet Volume 11.6 fL (8.0-11.0); Platelet Count 142 x1000/uL (130-400); RBC 2.35 m/cumm (4.00-5.20); RBC Distribution Width 13.8 % (11.7-14.6)
[2019-03-07 18:34] LABS: ALT 23 U/L (14-59); AST 22 U/L (15-37); Albumin 4.1 g/dL (3.4-5.0); Alkaline Phosphatase 66 U/L (46-116); Anion Gap 11.7 mmol/L (3-11); BUN 21 mg/dL (7-18); Bilirubin, Total 0.5 mg/dL (0.2-1.0); CO2 25.3 mmol/L (21.0-32.0); CREATININE 1.54 mg/dL (0.55-1.02); Calcium 9.4 mg/dL (8.5-10.1); Chloride 98 mmol/L (98-107); Estimated GFR 32.17 (mL/min/1.73m2); Glucose 99 mg/dL (74-106); Magnesium 1.7 mg/dL (1.8-2.4); Potassium 3.6 mmol/L (3.5-5.1); Sodium 135 mmol/L (136-145); Total Protein 7.8 g/dL (6.4-8.2)
[2019-03-07 19:34] LABS: White Blood Cell Count 1.34 k/cumm (4.4-10.8)
== END 2019-03-07 14:11 ==
LOC: LBN 13:51
PROVIDERS: PCP Nurse Practitioner; Visit Provider Nurse Practitioner
DX: I10 Essential (primary) hypertension (principal); E78.5 Hyperlipidemia, unspecified; D72.819 Decreased white blood cell count, unspecified; E83.42 Hypomagnesemia; M35.3 Polymyalgia rheumatica
CPT/HCPCS: 80053; 85027; 83735

== ENCOUNTER 2019-04-12 13:29 | Outpatient (CLI) | payer MEDICARE, BC, SELFPAY ==
[2019-04-12 13:53] LABS: Absolute Eosinophil Count 0.05 k/cumm (0.0-0.7); Absolute Lymphocyte Count 0.64 k/cumm (1.2-3.4); Absolute Neutrophil Count 0.68 k/cumm (1.2-6.7); Eosinophils % 3.4; HGB 8.4 g/dL (12.0-15.5); Lymphocytes % 43.5; Mean Corp. HGB Concentration 33.6 g/dL (32.0-36.0); Mean Corpuscular Hemoglobin 39.1 pg (27.0-33.0); Mean Corpuscular Volume 116.3 fL (80-95); Mean Platelet Volume 10.2 fL (8.0-11.0); Monocytes % 6.8; Neutrophils % 46.3; Platelet Count 138 x1000/uL (130-400); RBC 2.15 m/cumm (4.00-5.20); RBC Distribution Width 13.6 % (11.7-14.6)
[2019-04-12 14:20] LABS: White Blood Cell Count 1.47 k/cumm (4.4-10.8)
[2019-04-12 14:25] LABS: Diff Comment Diff Reviewed; Macrocytosis 2+; Polychromasia Present
[2019-04-12 14:26] LABS: Poikilocytes 1+
== END 2019-04-12 13:49 ==
PROVIDERS: PCP Nurse Practitioner; Visit Provider Nurse Practitioner
DX: D72.819 Decreased white blood cell count, unspecified (principal)
CPT/HCPCS: 36415; 85025

== ENCOUNTER 2019-04-29 13:23 | Outpatient (CLI) | payer MEDICARE, BC, SELFPAY ==
[2019-04-29 13:58] LABS: HCT 25.2 % (36.0-46.0); HGB 8.4 g/dL (12.0-15.5); Mean Corp. HGB Concentration 33.3 g/dL (32.0-36.0); Mean Corpuscular Hemoglobin 39.1 pg (27.0-33.0); Mean Corpuscular Volume 117.2 fL (80-95); Mean Platelet Volume 10.1 fL (8.0-11.0); Platelet Count 147 x1000/uL (130-400); RBC 2.15 m/cumm (4.00-5.20); RBC Distribution Width 13.6 % (11.7-14.6)
[2019-04-29 15:00] LABS: White Blood Cell Count 1.66 k/cumm (4.4-10.8)
[2019-04-29 15:24] LABS: Total Iron Binding Capacity 317 ug/dL (250-450)
[2019-04-29 15:52] LABS: Ferritin 316 ng/mL (8-252); Folate > 20.0 ng/mL (8.6-20.0); Vitamin B12 1390 pg/mL (193-986)
== END 2019-04-29 13:43 ==
PROVIDERS: PCP Nurse Practitioner; Visit Provider Nurse Practitioner
DX: I10 Essential (primary) hypertension (principal); D64.9 Anemia, unspecified; N18.3 Chronic kidney disease, stage 3 (moderate)
CPT/HCPCS: 36415; 85027; 82607; 82728; 82746; 83550; 84443

== ENCOUNTER 2019-04-30 12:12 | Outpatient (CLI) | payer MEDICARE, BC, SELFPAY | END 2019-04-30 12:32 | PROVIDERS: PCP Nurse Practitioner; Visit Provider Nurse Practitioner | DX: R69 Illness, unspecified (principal) | CPT/HCPCS: 36415; 86850; 86900; 86901; 86920 ==

== ENCOUNTER 2019-05-01 02:31 | Outpatient (RCR) | payer MEDICARE, BC, SELFPAY ==
[2019-05-01] VITALS (7 sets, daily range): BP systolic 156–190; BP diastolic 78–88; PULSE 73–96; RESP 18–19; TEMP 36.5–36.9; O2SAT 95–99
[2019-05-01] MEDS: Normal Saline Flush 10 ML SYR IVP (13:42)
== END 2019-05-25 23:59 | disposition home or self-care (01) ==
LOC: INF 02:31
PROVIDERS: PCP Nurse Practitioner; Visit Provider Nurse Practitioner
DX: D64.9 Anemia, unspecified (principal)
CPT/HCPCS: 36415; 36430; 86850; 86900; 86901; 86920; P9016

== ENCOUNTER 2019-05-06 13:48 | Outpatient (CLI) | payer MEDICARE, BC, SELFPAY ==
[2019-05-06 14:21] LABS: HCT 30.5 % (36.0-46.0); HGB 10.1 g/dL (12.0-15.5)
== END 2019-05-06 14:08 ==
PROVIDERS: PCP Nurse Practitioner; Visit Provider Nurse Practitioner
DX: D64.9 Anemia, unspecified (principal)
CPT/HCPCS: 36415; 85014; 85018

== ENCOUNTER 2020-04-22 02:59 | Outpatient (CLI) | payer MEDICARE, BC, SELFPAY ==
[2020-04-22 08:00] LABS: HCT 21.9 % (36.0-46.0); HGB 7.3 g/dL (11.2-15.7); MCH 39.9 pg (27.0-33.0); MCHC 33.3 % (32.0-36.0); MCV 119.7 fL (80-95); MPV 11.9 fL (8.0-11.0); RBC 1.83 10^6/uL (3.93-5.22); RDW 13.9 % (11.7-14.6); RDW-SD 60.9 fL
[2020-04-22 08:19] LABS: WBC 1.44 10^3/uL (4.4-10.8)
[2020-04-22 08:20] LABS: Platelet Count 102 10^3/uL (130-400)
[2020-04-22 09:14] LABS: ALT 24 U/L (14-59); AST 20 U/L (15-37); Alkaline Phosphatase 60 U/L (46-116); Anion Gap 9.8 mmol/L (3-11); BUN 20 mg/dL (7-18); Bilirubin, Total 0.6 mg/dL (0.2-1.0); CO2 26.2 mmol/L (21.0-32.0); CREATININE 1.54 mg/dL (0.55-1.02); Calcium 9.9 mg/dL (8.5-10.1); Calculated LDL 110 mg/dL (<100); Chloride 99 mmol/L (98-107); Cholesterol 186 mg/dL (<200); Estimated GFR 32.09 (mL/min/1.73m2); Glucose 112 mg/dL (74-106); HDL Cholesterol 39 mg/dL (40-60); Magnesium 1.6 mg/dL (1.8-2.4); Potassium 3.5 mmol/L (3.5-5.1); Sodium 135 mmol/L (136-145); Total Protein 7.7 g/dL (6.4-8.2); Triglyceride 187 mg/dL (<150)
[2020-04-22 09:30] LABS: Absolute Basophil Count 0.01 10^3/uL (0.0-0.2); Absolute Eosinophil Count 0.05 10^3/uL (0.0-0.7); Absolute Lymphocyte Count 0.64 10^3/uL (1.2-3.4); Absolute Monocyte Count 0.09 10^3/uL (0.1-0.8); Absolute Neutrophil Count 0.63 10^3/uL (1.2-6.7); Basophils % 0.7; Eosinophils % 3.5; Lymphocytes % 45.1; Monocytes % 6.3; Neutrophils % 44.4
[2020-04-22 11:17] LABS: Anisocytosis 2+; Diff Comment Agrees w/ Instrument; Macrocytosis 2+; Polychromasia Present
== END 2020-04-22 03:19 ==
PROVIDERS: PCP Nurse Practitioner; Visit Provider Nurse Practitioner
DX: D64.9 Anemia, unspecified (principal); E78.5 Hyperlipidemia, unspecified; I10 Essential (primary) hypertension; K21.9 Gastro-esophageal reflux disease without esophagitis; E83.42 Hypomagnesemia; D72.819 Decreased white blood cell count, unspecified
CPT/HCPCS: 36415; 80053; 80061; 85027; 86900; 86901; 83735; 85007; 85025

== ENCOUNTER 2020-04-22 09:25 | Outpatient (RCR) | payer MEDICARE, BC, SELFPAY ==
[2020-04-22] VITALS (10 sets, daily range): BP systolic 164–210; BP diastolic 72–108; PULSE 75–100; RESP 17–18; TEMP 36–37.3; O2SAT 96–99
[2020-04-22] MEDS: Normal Saline Flush 10 ML SYR IVP (10:45)
== END 2020-04-26 23:59 | disposition home or self-care (01) ==
LOC: INF 09:25
PROVIDERS: PCP Nurse Practitioner; Visit Provider Nurse Practitioner
DX: D61.818 Other pancytopenia (principal); D64.9 Anemia, unspecified
CPT/HCPCS: 36415; 36430; 80053; 80061; 85027; 86850; 86900; 86901; 86920; 83735; 85007; P9016

== ENCOUNTER 2020-05-27 04:28 | Outpatient (CLI) | payer MEDICARE, BC, SELFPAY ==
[2020-05-27 08:36] LABS: Absolute Basophil Count 0.01 10^3/uL (0.0-0.2); Absolute Eosinophil Count 0.02 10^3/uL (0.0-0.7); Absolute Lymphocyte Count 0.48 10^3/uL (1.2-3.4); Absolute Monocyte Count 0.09 10^3/uL (0.1-0.8); Eosinophils % 1.9; HCT 23.7 % (36.0-46.0); HGB 8.2 g/dL (11.2-15.7); Lymphocytes % 45.7; MCHC 34.6 % (32.0-36.0); MCV 109.7 fL (80-95); MPV 10.2 fL (8.0-11.0); Monocytes % 8.6; Neutrophils % 42.8; Nucleated RBC 0 %; RBC 2.16 10^6/uL (3.93-5.22); RDW 19.5 % (11.7-14.6); RDW-SD 76.2 fL
[2020-05-27 08:56] LABS: Diff Comment Agrees w/ Instrument; Platelet Count 91 10^3/uL (130-400)
[2020-05-27 08:57] LABS: Anisocytosis 2+; Macrocytosis 2+; Polychromasia Present
[2020-05-29 07:45] LABS: WBC 1.05 10^3/uL (4.4-10.8)
[2020-05-29 07:46] LABS: Absolute Neutrophil Count 0.45 10^3/uL (1.2-6.7)
== END 2020-05-27 04:29 | disposition home or self-care (01) ==
LOC: LBO 04:28
PROVIDERS: PCP Nurse Practitioner; Visit Provider Internal Medicine Hematology & Oncology
DX: N18.9 Chronic kidney disease, unspecified (principal); D63.1 Anemia in chronic kidney disease
CPT/HCPCS: 36415; 85025

== ENCOUNTER 2020-06-16 08:00 | Outpatient (RCR) | payer MEDICARE, BC, SELFPAY ==
[2020-05-25 00:06] VITALS: BP 200/92; PULSE 96; RESP 18; TEMP 37.3
[2020-06-16] MEDS: Normal Saline Flush 10 ML SYR IVP (08:28)
[2020-06-16 08:38] LABS: MCH 39.3 pg (27.0-33.0); MCHC 33.8 % (32.0-36.0); MCV 116.3 fL (80-95); MPV 11.3 fL (8.0-11.0); Nucleated RBC 0 %; RBC 1.78 10^6/uL (3.93-5.22); RDW 18.2 % (11.7-14.6)
[2020-06-16 09:01] LABS: HCT 20.7 % (36.0-46.0); WBC 1.15 10^3/uL (4.4-10.8)
[2020-06-16 09:02] LABS: Absolute Basophil Count 0.02 10^3/uL (0.0-0.2); Absolute Eosinophil Count 0.03 10^3/uL (0.0-0.7); Absolute Lymphocyte Count 0.47 10^3/uL (1.2-3.4); Absolute Monocyte Count 0.03 10^3/uL (0.1-0.8); Absolute Neutrophil Count 0.59 10^3/uL (1.2-6.7); Anisocytosis 2+; Bands % 4; Diff Comment Manual Differential; Macrocytosis 2+; Platelet Count 106 10^3/uL (130-400)
[2020-06-16 09:03] LABS: Polychromasia Present
[2020-06-16 09:35] VITALS: BP 154/88; PULSE 80; RESP 20; TEMP 36.9; O2SAT 100
[2020-06-16 09:47] VITALS: BP 148/80; PULSE 75; RESP 20; TEMP 36.8; O2SAT 98
[2020-06-16 10:02] VITALS: BP 146/80; PULSE 76; RESP 20; TEMP 36.7; O2SAT 98
[2020-06-16 10:32] VITALS: BP 152/80; PULSE 76; RESP 20; TEMP 36; O2SAT 98
[2020-06-16 10:56] VITALS: BP 154/80; PULSE 72; RESP 20; TEMP 36.9; O2SAT 98
[2020-06-16 11:58] VITALS: BP 158/90; PULSE 85; RESP 20; TEMP 36.9; O2SAT 98
== END 2020-06-24 23:59 | disposition home or self-care (01) ==
LOC: INF 08:00
PROVIDERS: Internal Medicine Hematology & Oncology; PCP Nurse Practitioner; Visit Provider Nurse Practitioner
DX: D46.9 Myelodysplastic syndrome, unspecified (principal)
CPT/HCPCS: 36415; 36430; 86850; 86900; 86901; 86920; 85025; P9016

== ENCOUNTER 2020-07-07 02:36 | Outpatient (RCR) | payer MEDICARE, BC, SELFPAY ==
[2020-06-25 00:13] VITALS: BP 158/90; PULSE 85; RESP 20; TEMP 36.9
[2020-07-07] MEDS: Normal Saline Flush 10 ML SYR IVP (08:17)
[2020-07-07 08:26] LABS: Abs Immature Grans 0.01 10^3/uL (0.0-0.06); Absolute Basophil Count 0.01 10^3/uL (0.0-0.2); Absolute Eosinophil Count 0.04 10^3/uL (0.0-0.7); Absolute Lymphocyte Count 0.82 10^3/uL (1.2-3.4); Absolute Monocyte Count 0.13 10^3/uL (0.1-0.8); Absolute Neutrophil Count 0.94 10^3/uL (1.2-6.7); Basophils % 0.5; Eosinophils % 2.1; HCT 25.7 % (36.0-46.0); HGB 8.7 g/dL (11.2-15.7); Immature Grans % 0.5; Lymphocytes % 42.1; MCHC 33.9 % (32.0-36.0); MCV 112.2 fL (80-95); MPV 11.5 fL (8.0-11.0); Monocytes % 6.7; Neutrophils % 48.1; Nucleated RBC 0 %; RBC 2.29 10^6/uL (3.93-5.22); RDW 20.4 % (11.7-14.6); RDW-SD 82.3 fL
[2020-07-07 08:48] LABS: Anisocytosis 2+; Diff Comment Diff Reviewed; Macrocytosis 2+; WBC 1.95 10^3/uL (4.4-10.8)
[2020-07-07 08:49] LABS: Poikilocytes 1+; Polychromasia Present
[2020-07-07 08:50] LABS: Platelet Count 121 10^3/uL (130-400)
== END 2020-07-24 23:59 | disposition home or self-care (01) ==
LOC: INF 02:36
PROVIDERS: Internal Medicine Hematology & Oncology; PCP Nurse Practitioner; Visit Provider Nurse Practitioner
DX: D46.9 Myelodysplastic syndrome, unspecified (principal)
CPT/HCPCS: 36415; 86900; 86901; 85025

== ENCOUNTER 2020-08-18 08:00 | Outpatient (RCR) | payer MEDICARE, BC, SELFPAY ==
[2020-07-25 00:22] VITALS: BP 158/90; PULSE 85; RESP 20; TEMP 36.9
[2020-07-28] MEDS: Normal Saline Flush 10 ML SYR IVP (08:12)
[2020-07-28 08:25] LABS: HCT 22.9 % (36.0-46.0); HGB 7.9 g/dL (11.2-15.7); MCH 40.1 pg (27.0-33.0); MCHC 34.5 % (32.0-36.0); MCV 116.2 fL (80-95); RBC 1.97 10^6/uL (3.93-5.22); RDW 19.3 % (11.7-14.6); RDW-SD 79.9 fL
[2020-07-28 08:53] LABS: Absolute Eosinophil Count 0.06 10^3/uL (0.0-0.7); Absolute Monocyte Count 0.06 10^3/uL (0.1-0.8); Absolute Neutrophil Count 0.59 10^3/uL (1.2-6.7); Atypical Lymphocytes % 1; Bands % 1; Nucleated RBC 1 %; Platelet Count 115 10^3/uL (130-400)
[2020-07-28 08:54] LABS: Anisocytosis 2+; Diff Comment Manual Differential; Macrocytosis 2+; Microcytosis 1+; Polychromasia Present
[2020-07-28 08:55] LABS: Poikilocytes 1+
[2020-07-28 09:24] VITALS: BP 150/60; PULSE 84; RESP 16; TEMP 36.8; O2SAT 98
[2020-07-28 09:32] VITALS: BP 150/60; PULSE 84; RESP 16; TEMP 36.9; O2SAT 98
[2020-07-28 09:47] VITALS: BP 146/72; PULSE 74; RESP 16; TEMP 36; O2SAT 99
[2020-07-28 10:17] VITALS: BP 152/78; PULSE 72; RESP 16; TEMP 36.7; O2SAT 100
[2020-07-28 11:24] VITALS: BP 168/80; PULSE 88; RESP 16; TEMP 36.7; O2SAT 100
[2020-08-18] MEDS: Normal Saline Flush 10 ML SYR IVP (08:17)
[2020-08-18 08:28] LABS: HCT 24.5 % (36.0-46.0); HGB 8.5 g/dL (11.2-15.7); MCH 38.6 pg (27.0-33.0); MCHC 34.7 % (32.0-36.0); MCV 111.4 fL (80-95); MPV 12.1 fL (8.0-11.0); Nucleated RBC 0 %; Platelet Count 90 10^3/uL (130-400); RDW 19.7 % (11.7-14.6); RDW-SD 78.3 fL
[2020-08-18 09:07] LABS: WBC 1.03 10^3/uL (4.4-10.8)
[2020-08-18 09:08] LABS: Absolute Basophil Count 0.01 10^3/uL (0.0-0.2); Absolute Eosinophil Count 0.04 10^3/uL (0.0-0.7); Absolute Lymphocyte Count 0.42 10^3/uL (1.2-3.4); Absolute Monocyte Count 0.04 10^3/uL (0.1-0.8); Diff Comment Manual Differential
[2020-08-18 09:09] LABS: Anisocytosis 1+; Macrocytosis 1+
[2020-08-27 13:51] LABS: Absolute Neutrophil Count 0.52 10^3/uL (1.2-6.7)
== END 2020-08-24 23:59 | disposition home or self-care (01) ==
LOC: INF 08:00
PROVIDERS: Internal Medicine Hematology & Oncology; PCP Nurse Practitioner; Visit Provider Nurse Practitioner
DX: D46.9 Myelodysplastic syndrome, unspecified (principal)
CPT/HCPCS: 36415; 36430; 86850; 86900; 86901; 86920; 85025; P9016

== ENCOUNTER 2020-09-08 10:00 | Outpatient (RCR) | payer MEDICARE, BC, SELFPAY ==
[2020-08-25 00:19] VITALS: BP 168/80; PULSE 88; RESP 16; TEMP 36.7
[2020-09-08 08:35] LABS: HCT 21.7 % (36.0-46.0); HGB 7.5 g/dL (11.2-15.7); MCH 40.5 pg (27.0-33.0); MCHC 34.6 % (32.0-36.0); MCV 117.3 fL (80-95); MPV 12.3 fL (8.0-11.0); Nucleated RBC 0 %; Platelet Count 90 10^3/uL (130-400); RBC 1.85 10^6/uL (3.93-5.22); RDW 18.9 % (11.7-14.6); RDW-SD 78.8 fL
[2020-09-08 08:44] LABS: WBC 1.22 10^3/uL (4.4-10.8)
[2020-09-08 08:58] LABS: Absolute Eosinophil Count 0.01 10^3/uL (0.0-0.7); Absolute Monocyte Count 0.15 10^3/uL (0.1-0.8); Absolute Neutrophil Count 0.56 10^3/uL (1.2-6.7)
[2020-09-08 08:59] LABS: Anisocytosis 1+; Diff Comment Manual Differential; Hypochromasia 1+; Macrocytosis 1+; Spherocytes 1+
[2020-09-08 09:31] VITALS: BP 182/78; PULSE 76; RESP 16; TEMP 36.8; O2SAT 99
[2020-09-08] MEDS: Normal Saline Flush 10 ML SYR IVP (09:32)
[2020-09-08 10:37] VITALS: BP 172/72; PULSE 73; RESP 16; TEMP 36.7; O2SAT 99
[2020-09-08 10:52] VITALS: BP 182/68; PULSE 71; RESP 16; TEMP 36.9; O2SAT 99
[2020-09-08 11:22] VITALS: BP 184/76; PULSE 84; RESP 16; TEMP 36.8; O2SAT 99
[2020-09-08 12:22] VITALS: BP 188/84; PULSE 89; RESP 16; TEMP 36.7; O2SAT 100
== END 2020-09-23 23:59 | disposition home or self-care (01) ==
LOC: INF 10:00
PROVIDERS: Internal Medicine Hematology & Oncology; PCP Nurse Practitioner; Visit Provider Nurse Practitioner
DX: D46.9 Myelodysplastic syndrome, unspecified (principal)
CPT/HCPCS: 36415; 36430; 86850; 86900; 86901; 86920; 85025; P9016

== ENCOUNTER 2020-10-20 03:14 | Outpatient (RCR) | payer MEDICARE, BC, SELFPAY ==
[2020-09-24 00:24] VITALS: BP 188/84; PULSE 89; RESP 16; TEMP 36.7
[2020-09-29 08:17] LABS: HCT 23.1 % (36.0-46.0); HGB 8.1 g/dL (11.2-15.7); MCH 39.1 pg (27.0-33.0); MCHC 35.1 % (32.0-36.0); MCV 111.6 fL (80-95); MPV 10.8 fL (8.0-11.0); Nucleated RBC 0 %; Platelet Count 88 10^3/uL (130-400); RBC 2.07 10^6/uL (3.93-5.22); RDW 19.4 % (11.7-14.6); RDW-SD 77.3 fL
[2020-09-29 08:29] LABS: WBC 1.05 10^3/uL (4.4-10.8)
[2020-09-29 08:45] LABS: Absolute Eosinophil Count 0.03 10^3/uL (0.0-0.7); Absolute Lymphocyte Count 0.41 10^3/uL (1.2-3.4); Absolute Monocyte Count 0.06 10^3/uL (0.1-0.8); Absolute Neutrophil Count 0.55 10^3/uL (1.2-6.7); Anisocytosis 1+; Bands % 4; Diff Comment Manual Differential; Macrocytosis 1+
[2020-10-20 08:16] LABS: Absolute Eosinophil Count 0.03 10^3/uL (0.0-0.7); HCT 22.1 % (36.0-46.0); HGB 7.5 g/dL (11.2-15.7); MCH 39.3 pg (27.0-33.0); MCHC 33.9 % (32.0-36.0); MCV 115.7 fL (80-95); MPV 11.6 fL (8.0-11.0); Nucleated RBC 0 %; Platelet Count 123 10^3/uL (130-400); RBC 1.91 10^6/uL (3.93-5.22); RDW 19.1 % (11.7-14.6); RDW-SD 79.4 fL
[2020-10-20] MEDS: Normal Saline Flush 10 ML SYR IVP (08:36)
[2020-10-20 08:39] LABS: Absolute Lymphocyte Count 0.78 10^3/uL (1.2-3.4); Absolute Neutrophil Count 0.62 10^3/uL (1.2-6.7)
[2020-10-20 08:40] LABS: Diff Comment Manual Differential; Macrocytosis 2+; Metamyelocytes % 2; Myelocytes % 1
[2020-10-20 08:41] LABS: Polychromasia Present
[2020-10-20 08:47] LABS: WBC 1.47 10^3/uL (4.4-10.8)
[2020-10-20 09:13] VITALS: BP 180/60; PULSE 79; RESP 16; TEMP 36.5; O2SAT 99
[2020-10-20 09:28] VITALS: BP 174/64; PULSE 71; RESP 16; TEMP 36.4; O2SAT 100
[2020-10-20 09:51] VITALS: BP 180/70; PULSE 70; RESP 16; TEMP 36.4; O2SAT 100
[2020-10-20 10:24] VITALS: BP 192/70; PULSE 82; RESP 16; TEMP 37.1; O2SAT 100
[2020-10-20 10:54] VITALS: BP 166/88; PULSE 88; RESP 16; TEMP 36.8; O2SAT 99
== END 2020-10-24 23:59 | disposition home or self-care (01) ==
LOC: INF 03:14
PROVIDERS: Internal Medicine Hematology & Oncology; PCP Nurse Practitioner; Visit Provider Nurse Practitioner
DX: D61.818 Other pancytopenia (principal)
CPT/HCPCS: 36415; 36430; 86850; 86900; 86901; 86920; 85025; P9016

== ENCOUNTER 2020-11-06 09:42 | Inpatient (IN) | payer MEDICARE, BC, SELFPAY ==
[2020-11-06] VITALS (19 sets, daily range): BP systolic 145–165; BP diastolic 58–70; PULSE 81–115; RESP 12–24; TEMP 36.6–38.1; O2SAT 96–99
--- NOTE | 2020-11-06 09:45 | RT.EKG_ITS ---
APPROVED REPORT Exam: Resting ECG Reason for Exam: weakness Patient Location: E HR:87 bpm ECG Measurements Heart Rate 87 AXIS CO 140 P 63 QRSd 90 QRS 23 QT 365 T 207 QTc 439 Conclusion Sinus rhythm...normal P axis, V-rate 60- 99 Nonspecific repol abnormality, diffuse leads...ST dep, T flat/neg, ant/lat/inf sinus rhythm at 87, normal axis, nonspecific ST depression present on prior 02/13/2018, no STEMI, non diagnostic EKG
--- NOTE | 2020-11-06 10:15 | DI.RAD_ITS ---
Exam(s) XR CHEST 2V PA LATERAL EXAM: XR CHEST 2V PA LATERAL CLINICAL HISTORY: generalized weakness TECHNIQUE: 2D digital imaging was performed. COMPARISON: No exams were available for comparison FINDINGS: MEDIASTINUM: Normal. HEART: Normal. Mitral valve calcification. PULMONARY VASCULATURE: Normal. LUNGS: Clear. PLEURAL SPACE: No pleural effusion or pneumothorax. BONE:Within normal limits for the patient's age. Old proximal right humeral fracture. OTHER FINDINGS:Normal. IMPRESSION: No acute pulmonary findings. DATA REPOSITORY: RADIATION DOSE DELIVERED:
--- NOTE | 2020-11-06 10:24 | ED.GENADUL_ITS ---
Discharge Plan Disposition Patient Disposition: [facility] INPATIENT Condition: Good Discharge Details Clinical Impression: UTI (urinary tract infection), Hypomagnesemia, Hyponatremia Admit Date/Time: 11/06/20 13:54 Admit Provider: Gretchen Mas Attending Provider: Gretchen Mas Primary Care Provider: Lindsay Diaz ED Provider: Robyn Nam Discharge Data Discharge Date/Time-TO BE ENTERED AT DEPARTURE: 11/06/20 18:27 Medical Decision Making Marysol Meraz is an 84 y/o woman with history of myelodysplastic syndrome, polymyalgia rheumatica, hypertension, hyperlipidemia, CKD who presented to the emergency department with episode of vomiting with possible brief syncope 2 days ago, followed by generalized weakness and loss of appetite that has persisted. Patient has well and nontoxic-appearing on exam. Benign abdominal exam. Benign pulmonary exam. No lower extremity edema or posterior calf tenderness palpation. Concern for occult pneumonia, UTI, electrolyte/metabolic derangement, other. Doubt acute coronary syndrome. Exam/history at this time intoxication with pulmonary embolism, acute aortic pathology, sepsis, meningitis. EKG is nondiagnostic. Plan for IV placement, chest x-ray, telemetry, screening labs, UA. Labs reviewed. Leukopenia with WBC 1.4 at baseline, hemoglobin 8.3, platelets 106, lactate 1.2, sodium 130, creatinine at baseline at 1.7, magnesium 1.4. UA consistent with urinary tract infection. Given hyponatremia, hypomagnesia, UTI, lack of appetite that may prohibit electrolyte repletion at home, plan for admission for further evaluation and treatment. Patient accepted for admission by Dr. Mas. Medical Records Medical records reviewed: Yes I reviewed the patient's medical records. Imaging Data Radiologic Study: Attestation: I personally reviewed and interpreted this imaging study as follows: Radiologist's impression: EXAM: XR CHEST 2V PA LATERAL CLINICAL HISTORY: generalized weakness TECHNIQUE: 2D digital imaging was performed. COMPARISON: No exams were available for comparison FINDINGS: MEDIASTINUM: Normal. HEART: Normal. Mitral valve calcification. PULMONARY VASCULATURE: Normal. LUNGS: Clear. PLEURAL SPACE: No pleural effusion or pneumothorax. BONE:Within normal limits for the patient's age. Old proximal right humeral fracture. OTHER FINDINGS:Normal. IMPRESSION: No acute pulmonary findings. Lab Data Lab results reviewed: Yes I reviewed the patient's lab results. Labs: 11/06/20 13:10 Urine - Reflex from Ua Urine Culture - Pending 11/06/20 10:55 Blood Blood Culture - Pending 11/06/20 10:45 Blood Blood Culture - Pending Laboratory Tests Range/Units 11/06/20 11/06/20 11/06/20 09:55 09:55 09:55 WBC (4.4-10.8) 10^3/uL 1.41 L* RBC (3.93-5.22) 10^6/uL 2.18 L Hgb (11.2-15.7) g/dL 8.3 L Hct (36.0-46.0) % 24.2 L MCV (80-95) fL 111.0 H MCH (27.0-33.0) pg 38.1 H MCHC (32.0-36.0) % 34.3 RDW (11.7-14.6) % Plt Count (130-400) 10^3/uL 106 L MPV (8.0-11.0) fL 10.9 Immature Gran % See Differential Neutrophils % 53.0 Lymphocytes % 31.0 Monocytes % 10.0 Eosinophils % 3.0 Basophils % 0.0 Metamyelocytes % 1 Myelocytes % 2 Nucleated RBC % % 2 Absolute Neutrophils (1.2-6.7) 10^3/uL 0.75 L Absolute Lymphocytes (1.2-3.4) 10^3/uL 0.44 L Absolute Monocytes (0.1-0.8) 10^3/uL 0.14 Absolute Eosinophils (0.0-0.7) 10^3/uL 0.04 Absolute Basophils (0.0-0.2) 10^3/uL 0.00 RBC Morphology See Below Polychromasia Present Hypochromasia 2+ Macrocytosis 2+ VBG Lactate (0.6-1.4) mmol/L 1.2 Sodium (136-145) mmol/L 130 L Potassium (3.5-5.1) mmol/L 3.7 Chloride (98-107) mmol/L 95 L Carbon Dioxide (21.0-32.0) mmol/L 24.6 Anion Gap (3-11) mmol/L 10.4 BUN (7-18) mg/dL 24 H Creatinine (0.55-1.02) mg/dL 1.7 H Estimated GFR/1.73 m2 (mL/min/1.73m2) 28.63 Glucose (74-106) mg/dL 124 H Calcium (8.5-10.1) mg/dL 10.5 H Magnesium (1.8-2.4) mg/dL 1.5 L Total Bilirubin (0.2-1.0) mg/dL 1.4 H AST (15-37) U/L 24 ALT (14-59) U/L 26 Alkaline Phosphatase (46-116) U/L 57 Troponin I (<0.06) ng/mL < 0.05 Total Protein (6.4-8.2) g/dL 8.7 H Albumin (3.4-5.0) g/dL 4.0 TSH (0.36-3.74) uIU/mL 3.18 Urine Color (Yellow) Urine Clarity (Clear) Urine pH (5-8) Ur Specific Gilman (1.005-1.025) Urine Protein (Negative) mg/dL Urine Ketones (Negative) mg/dL Urine Blood (Negative) Urine Nitrite (Negative) Urine Bilirubin (Negative) Urine Urobilinogen (Up TO 0.2) EU/dL Ur Leukocyte Esterase (Negative) Urine RBC (0-2) HPF Urine WBC (0-5) HPF Ur Epithelial Cells (Negative) HPF Urine Crystals (Negative) HPF Urine Bacteria (Negative) HPF Urine Casts (Negative) LPF Urine Mucus (Negative) Urine Other (Negative) Ur Culture Indicated? Urine Glucose (Negative) mg/dL COVID-19 Source Range/Units 11/06/20 11/06/20 11/06/20 13:10 14:00 14:11 WBC (4.4-10.8) 10^3/uL RBC (3.93-5.22) 10^6/uL Hgb (11.2-15.7) g/dL Hct (36.0-46.0) % MCV (80-95) fL MCH (27.0-33.0) pg MCHC (32.0-36.0) % RDW (11.7-14.6) % Plt Count (130-400) 10^3/uL MPV (8.0-11.0) fL Immature Gran % Neutrophils % Lymphocytes % Monocytes % Eosinophils % Basophils % Metamyelocytes % Myelocytes % Nucleated RBC % % Absolute Neutrophils (1.2-6.7) 10^3/uL Absolute Lymphocytes (1.2-3.4) 10^3/uL Absolute Monocytes (0.1-0.8) 10^3/uL Absolute Eosinophils (0.0-0.7) 10^3/uL Absolute Basophils (0.0-0.2) 10^3/uL RBC Morphology Polychromasia Hypochromasia Macrocytosis VBG Lactate (0.6-1.4) mmol/L Sodium (136-145) mmol/L Potassium (3.5-5.1) mmol/L Chloride (98-107) mmol/L Carbon Dioxide (21.0-32.0) mmol/L Anion Gap (3-11) mmol/L BUN (7-18) mg/dL Creatinine (0.55-1.02) mg/dL Estimated GFR/1.73 m2 (mL/min/1.73m2) Glucose (74-106) mg/dL Calcium (8.5-10.1) mg/dL Magnesium (1.8-2.4) mg/dL Total Bilirubin (0.2-1.0) mg/dL AST (15-37) U/L ALT (14-59) U/L Alkaline Phosphatase (46-116) U/L Troponin I (<0.06) ng/mL < 0.05 Total Protein (6.4-8.2) g/dL Albumin (3.4-5.0) g/dL TSH (0.36-3.74) uIU/mL Urine Color (Yellow) Yellow Urine Clarity (Clear) Sl Cloudy Urine pH (5-8) 7.0 Ur Specific Gilman (1.005-1.025) 1.015 Urine Protein (Negative) mg/dL 100 H Urine Ketones (Negative) mg/dL Negative Urine Blood (Negative) Negative Urine Nitrite (Negative) Positive H Urine Bilirubin (Negative) Negative Urine Urobilinogen (Up TO 0.2) EU/dL 0.2 Ur Leukocyte Esterase (Negative) Small H Urine RBC (0-2) HPF Negative Urine WBC (0-5) HPF >50 H Ur Epithelial Cells (Negative) HPF Few Urine Crystals (Negative) HPF Negative Urine Bacteria (Negative) HPF Many Urine Casts (Negative) LPF Negative Urine Mucus (Negative) Moderate Urine Other (Negative) Negative Ur Culture Indicated? Yes Urine Glucose (Negative) mg/dL Negative COVID-19 Source Nasal/Nares ECG Data Attestation: I personally reviewed and interpreted this ECG (s) as follows: Interpretation: EKG shows sinus rhythm at 87, normal axis, nonspecific ST depression present on prior 02/13/2018, no STEMI, nondiagnostic EKG HPI General Mode of arrival: ambulatory . Date/Time Provider Initiated Documentation: 11/06/20 09:46 . Limitations to Documentation: no limitations . Information obtained by: patient, RN notes reviewed and old records reviewed . HPI Narrative: Marysol Meraz is an 84-year-old woman with a history of myelodysplastic syndrome, pancytopenia, polymyalgia rheumatica, hyperlipidemia, hypertension, chronic kidney disease presenting to emergency department generalized weakness. Patient reports that 2 days ago she had an episode of vomiting. Patient reports that she was seated in a chair when she began to feel nauseous and vomited once. Patient reports that concurrent with the vomiting she felt lightheaded and thinks that she may have lost consciousness for 1 or 2 seconds. Patient reports that after the episode of vomiting felt generally weak. Patient reports that she has continued to feel generally weak and overall unwell since that episode. She states that she has been walking around her home as usual, has been eating and drinking as usual since episodes. She denies any pain, fever, shortness of breath, cough, numbness, focal weakness, rash, extremity swelling. Patient reports that when she has been anemic in the past and has required transfusions, she has not had similar symptoms to this. Related Data Home Medications Medication Instructions Recorded Confirmed One Daily For Women 1 ea PO DAILY 06/19/12 11/06/20 cyanocobalamin (vitamin B-12) 1,000 mcg PO DAILY 06/19/12 11/06/20 [Vitamin B-12] ascorbic acid (vitamin C) [Vitamin 500 mg PO DAILY 07/30/15 11/06/20 C] hydrochlorothiazide 25 mg tablet 25 mg PO DAILY #90 tab-cap 03/09/20 11/06/20 magnesium L-lactate 84 mg 84 mg PO BID #180 tab 03/09/20 11/06/20 tablet,extended release food supplemt, lactose-reduced ml PO DAILY ml 03/01/21 04/05/21 omeprazole 20 mg capsule,delayed 20 mg PO DAILY #90 cap 08/11/20 11/06/20 release calcium carbonate 500 mg calcium 1,000 mg PO DAILY tab 09/07/20 11/06/20 (1,250 mg) tablet cholecalciferol (vitamin D3) 50 250 mcg PO DAILY cap 09/07/20 11/06/20 mcg (2,000 unit) capsule carvedilol 6.25 mg PO BID #60 tab 11/11/20 carvedilol 6.25 mg PO BID #60 tab 11/11/20 fosfomycin tromethamine See Rx Instructions .ROUTE 11/11/20 .COMPLEX #3 ea valsartan [Diovan] 80 mg PO DAILY #30 tab 11/11/20 Previous Rx's Medication Instructions Recorded hydrochlorothiazide 25 mg tablet 25 mg PO DAILY #90 tab-cap 03/09/20 magnesium L-lactate 84 mg 84 mg PO BID #180 tab 03/09/20 tablet,extended release omeprazole 20 mg capsule,delayed 20 mg PO DAILY #90 cap 08/11/20 release carvedilol 6.25 mg PO BID #60 tab 11/11/20 carvedilol 6.25 mg PO BID #60 tab 11/11/20 fosfomycin tromethamine See Rx Instructions .ROUTE 11/11/20 .COMPLEX #3 ea valsartan [Diovan] 80 mg PO DAILY #30 tab 11/11/20 Allergies Allergy/AdvReac Type Severity Reaction Status Date / Time alendronate sodium AdvReac Intermediate Polymyalgia Verified 11/06/20 09:58 amlodipine AdvReac Intermediate Peridontal Verified 11/06/20 09:58 disease metoclopramide AdvReac Intermediate Shaky Verified 11/06/20 09:58 metoprolol AdvReac Intermediate dizzy, Verified 11/06/20 09:58 sore gums chlorthalidone AdvReac Unknown n/v Verified 11/06/20 09:58 lisinopril AdvReac Unknown unknown rxn Verified 11/06/20 09:58 Sulfa (Sulfonamide AdvReac Unknown Yeast Verified 11/06/20 09:58 Antibiotics) Infection General Stated Complaint: GenMedical NATHANIEL: 3 Review of Systems Narrative: Constitutional: denies fevers, reports generalized weakness Eyes: denies eye pain ENT: denies ear pain, dental pain, sore throat Cardiovascular: denies chest pain, edema Respiratory: denies SOB, cough GI: denies abdominal pain, vomiting, diarrhea : denies flank pain MSK: denies back pain, neck pain, arthralgias, myalgias Skin: denies rash Neuro: denies headaches, numbness, focal weakness [facility] Medical History (Updated 11/12/20 @ 08:34 by Kyree Cummins) Anemia BCC (basal cell carcinoma of skin) 06/14/15 Dr Ba-Right nasal sidewall 12/2017 Dr Ba-right inferior nasal alar sill Chronic kidney disease, stage III (moderate) (07/24/12) onset 2006; renal US 12/2008 WNL Esophageal reflux (07/01/11) Essential hypertension (12/20/12) FRS 28%; white coat effect HLD (hyperlipidemia) HTN (hypertension) Humeral fracture (06/04/15) displaced 2 part fracture proximal right humerous Hyperlipidemia (07/01/11) 2013 PCEq 28% LDL baseline 188, declines statins Hypomagnesemia (07/04/14) on HCTZ Leukopenia (06/06/14) Dr Jaramillo [facility]: ?early myelodysplasia: CBC q6m Osteoporosis, unspecified (07/01/11) DEXA 2004 spine T -3.7, hip T -1.7; intolerant alendronate; 2016 reluctant re meds Pancytopenia SCCA (squamous cell carcinoma) of skin 12/2017 Dr Ba right anterior charles Syncope (02/10/14) Surgical History Extraction of cataract (04/30/13) left eye Pacemaker (10/27/15) Dr. Hobson [facility] Family History Father Heart disease Social History Smoking/Tobacco Use Status: Never Smoking risk assessment performed?: Yes Alcohol Intake: current Alcohol Intake frequency: 0-2 drinks per day Drug use: Never Substance use type: does not use Household members: none Housing: house Number of Children: 4 Communication Needs: Corrective Lenses Do you need help understanding health information?: Rarely current occupation: retired Pets and animals: Yes Pets and animals: cat(s) What type of physical activity do you participate in: bicycling, regular exercise and other Details: stationary bike Duration: < 15 minutes/day Frequency: daily Seatbelt use: always Drive intox or ride w/intox cdl dedicated truck driver: No Water heater temp set <120 deg: Yes Working smoke detector in home: Yes Fire extinguisher in home: Yes Carbon monox detector in home: Yes Firearms in home: No Do you feel safe at home: Yes Do you feel safe in your relationship?: Yes Exam Narrative Exam Narrative: Constitutional: well and [id number], pleasant, conversing normally HENT: head atraumatic/normocephalic/normal inspection, mucous membranes moist Eyes: conjunctiva normal, sclera normal, pupils 3mm b/l Neck: no stridor, normal ROM, trachea midline Chest: normal inspection Resp: normal work of breathing, LCTAB Cardio: normal rate, normal rhythm, no murmur appreciated GI: abdomen soft, non-tender, non-distended Back: normal inspection, no rash Skin: warm, dry, normal color, no rash Neuro: alert, not altered, grossly non-focal, normal tone Ext: no edema, no posterior calf tenderness to palpation, DP pulses intact and symmetric Psych: normal mood, normal affect, normal behavior Course Vital Signs Vital signs: Vital Signs Temperature 36.6 C 11/06/20 09:49 Pulse 89 11/06/20 09:49 Respiratory Rate 17 11/06/20 09:49 Blood Pressure 155/58 H 11/06/20 09:49 Pulse Oximetry 99 11/06/20 09:49 Temperature 36.6 C 11/06/20 09:49 Temperature Source Temporal Artery Scan 11/06/20 09:49 Pulse 89 11/06/20 09:49 Respiratory Rate 16 11/06/20 10:19 Respiratory Effort Non-Labored 11/06/20 09:55 Blood Pressure 155/58 H 11/06/20 10:19 Blood Pressure Position Supine 11/06/20 09:49 Pulse Oximetry 99 11/06/20 09:49 Oxygen Delivery Method Room Air 11/06/20 09:49 Oxygen Flow Rate 0 11/06/20 09:49 Pain Level 0 11/06/20 09:49 Lab/Test Results Lab/Test Results: 11/06/20 10:20 Blood Blood Culture - Pending 11/06/20 10:20 Blood Blood Culture - Pending
[2020-11-06 10:34] LABS: Lactate 1.2 mmol/L (0.6-1.4)
[2020-11-06 10:38] LABS: Abs Immature Grans 0.01 10^3/uL (0.0-0.06); Absolute Lymphocyte Count 0.44 10^3/uL (1.2-3.4); HCT 24.2 % (36.0-46.0); HGB 8.3 g/dL (11.2-15.7); MCH 38.1 pg (27.0-33.0); MCHC 34.3 % (32.0-36.0); MPV 10.9 fL (8.0-11.0); RBC 2.18 10^6/uL (3.93-5.22)
[2020-11-06 10:58] LABS: ALT 26 U/L (14-59); AST 24 U/L (15-37); Alkaline Phosphatase 57 U/L (46-116); Anion Gap 10.4 mmol/L (3-11); BUN 24 mg/dL (7-18); Bilirubin, Total 1.4 mg/dL (0.2-1.0); CO2 24.6 mmol/L (21.0-32.0); CREATININE 1.7 mg/dL (0.55-1.02); Calcium 10.5 mg/dL (8.5-10.1); Chloride 95 mmol/L (98-107); Estimated GFR 28.63 (mL/min/1.73m2); Glucose 124 mg/dL (74-106); Magnesium 1.5 mg/dL (1.8-2.4); Potassium 3.7 mmol/L (3.5-5.1); Sodium 130 mmol/L (136-145); TSH (W/Ref FT4) 3.18 uIU/mL (0.36-3.74); Total Protein 8.7 g/dL (6.4-8.2); Troponin I < 0.05 ng/mL (<0.06)
[2020-11-06 11:07] LABS: Platelet Count 106 10^3/uL (130-400); WBC 1.41 10^3/uL (4.4-10.8)
[2020-11-06 11:08] LABS: Absolute Eosinophil Count 0.04 10^3/uL (0.0-0.7); Absolute Monocyte Count 0.14 10^3/uL (0.1-0.8); Absolute Neutrophil Count 0.75 10^3/uL (1.2-6.7); Diff Comment Manual Differential; Metamyelocytes % 1; Myelocytes % 2; Nucleated RBC 2 %
[2020-11-06 11:09] LABS: Hypochromasia 2+; Macrocytosis 2+; Polychromasia Present
[2020-11-06] MEDS: MAGNESIUM SULFATE 1 GM/100 ML BAG IVPB (13:04)
[2020-11-06 13:19] LABS: Bilirubin Negative (Negative); Blood Negative (Negative); Clarity Sl Cloudy (Clear); Glucose Negative (Negative); Ketones Negative (Negative); Leukocyte Esterase Small (Negative); Nitrite Positive (Negative); Specific Gravity 1.015 (1.005-1.025); Urobilinogen 0.2 EU/dL (Up TO 0.2)
[2020-11-06 13:29] LABS: Bacteria Many HPF (Negative); C & S Indicated? Yes; Casts Negative LPF (Negative); Crystals Negative HPF (Negative); Epithelial Cells Few HPF (Negative); Mucus Moderate (Negative); Other Cells Negative (Negative); RBC Negative HPF (0-2); WBC >50 HPF (0-5)
[2020-11-06] MEDS: CEFEPIME 2 GM in Normal Saline 100 ML IVPB (14:06)
[2020-11-06] MEDS: Normal Saline 500 ML IV (14:07)
[2020-11-06 14:34] LABS: Source Nasal/Nares
[2020-11-06 14:37] LABS: Troponin I < 0.05 ng/mL (<0.06)
[2020-11-06 15:31] LABS: COVID-19 PCR Negative (Negative)
--- NOTE | 2020-11-06 18:09 | HPE_ITS ---
Date of service: 11/06/20 Time of Service: 18:09 Assessment and Plan Assessment and plan (1) UTI (urinary tract infection): Status: Acute Assessment and plan: Continue empiric cefepime initiated in the ED given neutropenia. (2) Syncope: Status: Chronic Assessment and plan: Possible vaso vagal event in setting of n/v. However, cardiac arrhythmia should be ruled out. Will keep on tele. Hydrate. Check CT-head given headache. Trops negative x2. (3) Acute kidney injury superimposed on chronic kidney disease: Status: Acute Assessment and plan: mild. IVF. Will continue ARB with low threshold to hold if Cr worsens. (4) Dehydration: Status: Acute Assessment and plan: Continue IVF. (5) Hypomagnesemia: Status: Acute Assessment and plan: Replete and recheck in am (6) Hyponatremia: Status: Acute Assessment and plan: Hydrate with NS (7) Hypercalcemia: Status: Acute Assessment and plan: D/c Calcium and vitamin D supplements. Check vitamin D level. Hydrate IV and recheck in am. (8) Myelodysplastic syndrome, unspecified: Status: Chronic Assessment and plan: Does get blood transfusions as needed. Monitor white counts. (9) Pancytopenia: Status: Chronic Assessment and plan: Due to above. As above. Will use cefepime due to neutropenia. (10) DVT prophylaxis: Status: Acute Assessment and plan: TEDS/SCDs. Hold DVT ppx in setting of thrombocytopenia (11) Discharge planning issues: Status: Acute Assessment and plan: Full code Obtain PT and palliative care consults. History of Present Illness History of Present Illness Chief Complaint: weakness, poor PO intake Narrative: Ms Meraz is an 84 year old female with PMHx of MDS, receiving blood transfusions, as well as h/o CKD III, HTN, hyperlipidemia, who presented to [facility] ED today complaining of not feeling well. She describes weakness, poor appetite, R-sided headache and ear pain. Additionally, she describes an episode of possible loss of consciousness when she sat down after bringing in her grocery bags into the house and vomited. She states she did not hit her head, but has no recollection of the episode and cannot describe her prodromal symptoms. She does report urinary frequency, but not dysuria. She has not had any more nausea or vomiting, but has been eating only yogurt and drinking some water due to poor appetite at home. She denies being exposed to anyone with symptoms or diagnosis of COVID-19 and is fully vaccinated with Moderna vaccine. In the ED, she was found to have a UTI and dehydration with mild TAPAN on CKD and hypercalcemia. Due to her neutropenia, she was initiated on empiric cefepime. She was also given IVF. She was found to have low magnesium. Because the patient's PO intake at home was so poor, hospitalist admission was requested. On arrival to the floor, her temp is 38.1 and she is tachycardic to 115. Review of Systems All systems reviewed & are unremarkable except as noted in HPI and below [facility] Medical History Anemia BCC (basal cell carcinoma of skin) 06/14/15 Dr Ba-Right nasal sidewall 12/2017 Dr Ba-right inferior nasal alar sill Chronic kidney disease, stage III (moderate) (07/24/12) onset 2006; renal US 12/2008 WNL Esophageal reflux (07/01/11) Essential hypertension (12/20/12) FRS 28%; white coat effect HLD (hyperlipidemia) HTN (hypertension) Humeral fracture (06/04/15) displaced 2 part fracture proximal right humerous Hyperlipidemia (07/01/11) 2013 PCEq 28% LDL baseline 188, declines statins Hypomagnesemia (07/04/14) on HCTZ Leukopenia (06/06/14) Dr Jaramillo [facility]: ?early myelodysplasia: CBC q6m Osteoporosis, unspecified (07/01/11) DEXA 2003 spine T -3.7, hip T -1.7; intolerant alendronate; 2016 reluctant re meds Pancytopenia SCCA (squamous cell carcinoma) of skin 12/2017 Dr Ba right anterior charles Syncope (02/10/14) Surgical History Extraction of cataract (04/30/13) left eye Pacemaker (10/27/15) Dr. Hobson [facility] Family History Father Heart disease Social History Smoking/Tobacco Use Status: Never Smoking risk assessment performed?: Yes Alcohol Intake: current Alcohol Intake frequency: 0-2 drinks per day Drug use: Never Substance use type: does not use Household members: none Housing: house Number of Children: 4 Communication Needs: Corrective Lenses Do you need help understanding health information?: Rarely current occupation: retired Pets and animals: Yes Pets and animals: cat(s) What type of physical activity do you participate in: bicycling, regular exercise and other Details: stationary bike Duration: < 15 minutes/day Frequency: daily Seatbelt use: always Drive intox or ride w/intox sprinkler driver: No Water heater temp set <120 deg: Yes Working smoke detector in home: Yes Fire extinguisher in home: Yes Carbon monox detector in home: Yes Firearms in home: No Do you feel safe at home: Yes Do you feel safe in your relationship?: Yes Meds Allergies and Home Medications Allergies Allergy/AdvReac Type Severity Reaction Status Date / Time alendronate sodium AdvReac Intermediate Polymyalgia Verified 11/06/20 09:58 amlodipine AdvReac Intermediate Peridontal Verified 11/06/20 09:58 disease metoclopramide AdvReac Intermediate Shaky Verified 11/06/20 09:58 metoprolol AdvReac Intermediate dizzy, Verified 11/06/20 09:58 sore gums chlorthalidone AdvReac Unknown n/v Verified 11/06/20 09:58 lisinopril AdvReac Unknown unknown rxn Verified 11/06/20 09:58 Sulfa (Sulfonamide AdvReac Unknown Yeast Verified 11/06/20 09:58 Antibiotics) Infection Home Medications Medication Instructions Recorded Confirmed Type One Daily For Women 1 ea PO DAILY 06/19/12 11/06/20 History cyanocobalamin (vitamin B-12) 1,000 mcg PO DAILY 06/19/12 11/06/20 History [Vitamin B-12] ascorbic acid (vitamin C) [Vitamin 500 mg PO DAILY 07/30/15 11/06/20 History C] nystatin 100,000 unit/gram topical 1 applic TP TID #30 gm 08/13/19 11/06/20 Rx cream ketoconazole 2 % topical cream 1 applic TP BID #60 gm 01/02/20 11/06/20 Rx hydrochlorothiazide 25 mg tablet 25 mg PO DAILY #90 tab-cap 03/09/20 11/06/20 Rx magnesium L-lactate 84 mg 84 mg PO BID #180 tab 03/09/20 11/06/20 Rx tablet,extended release food supplemt, lactose-reduced ml PO DAILY ml 05/25/20 06/29/20 History losartan 100 mg tablet 100 mg PO DAILY #90 tab 06/29/20 11/06/20 Rx omeprazole 20 mg capsule,delayed 20 mg PO DAILY #90 cap 08/11/20 11/06/20 Rx release calcium carbonate 500 mg calcium 1,000 mg PO DAILY tab 09/07/20 11/06/20 History (1,250 mg) tablet cholecalciferol (vitamin D3) 50 250 mcg PO DAILY cap 09/07/20 11/06/20 History mcg (2,000 unit) capsule Exam Narrative Exam Narrative: General: Pleasant elderly female who is A&Ox3, appears comfortable in bed, HO-CHUNK Neurological: A&Ox3, HO-CHUNK, no obvious focal deficits Psychiatric: Appropriate speech pattern/content Skin: Visible skin dry, intact; does have fungal dermatitis in the vulvar region HEENT: Atraumatic, normocephalic, EOMI, dry MM, clear oropharynx, no submandibular or cervical lymphadenopathy, no goiter or JVD, otoscopic exam R ear: mildly bulging tympanic membrane, which is non-erythematous; L ear - no erythema or bulging of the tympanic membrane Cardiovascular: RRR, tachycardic, +SERA Lungs: CTAB Gastrointestinal: soft, nontender, nondistended Genitourinary: vulvar candidiasis Extremities: no edema BLE's, 2+ pedal pulses B Results Imaging Additional studies: CXR: No acute pulmonary findings. EKG: SR, HR 87, lateral ST segment depressions, old Labs Result diagrams: 11/06/20 09:55 11/06/20 09:55 Labs: Laboratory Results - last 24 hr 11/06/20 11/06/20 11/06/20 09:55 09:55 09:55 WBC 1.41 L* RBC 2.18 L Hgb 8.3 L Hct 24.2 L MCV 111.0 H MCH 38.1 H MCHC 34.3 RDW Plt Count 106 L MPV 10.9 Immature Gran % See Differential Neutrophils % 53.0 Lymphocytes % 31.0 Monocytes % 10.0 Eosinophils % 3.0 Basophils % 0.0 Metamyelocytes % 1 Myelocytes % 2 Nucleated RBC % 2 Absolute Neutrophils 0.75 L Absolute Lymphocytes 0.44 L Absolute Monocytes 0.14 Absolute Eosinophils 0.04 Absolute Basophils 0.00 RBC Morphology See Below Polychromasia Present Hypochromasia 2+ Macrocytosis 2+ VBG Lactate 1.2 Sodium 130 L Potassium 3.7 Chloride 95 L Carbon Dioxide 24.6 Anion Gap 10.4 BUN 24 H Creatinine 1.7 H Estimated GFR/1.73 m2 28.63 Glucose 124 H Calcium 10.5 H Magnesium 1.5 L Total Bilirubin 1.4 H AST 24 ALT 26 Alkaline Phosphatase 57 Troponin I < 0.05 Total Protein 8.7 H Albumin 4.0 TSH 3.18 Urine Color Urine Clarity Urine pH Ur Specific [place] Urine Protein Urine Ketones Urine Blood Urine Nitrite Urine Bilirubin Urine Urobilinogen Ur Leukocyte Esterase Urine RBC Urine WBC Ur Epithelial Cells Urine Crystals Urine Bacteria Urine Casts Urine Mucus Urine Other Ur Culture Indicated? Urine Glucose COVID-19 Source SARS-CoV-2 (PCR) 11/06/20 11/06/20 11/06/20 13:10 14:00 14:11 WBC RBC Hgb Hct MCV MCH MCHC RDW Plt Count MPV Immature Gran % Neutrophils % Lymphocytes % Monocytes % Eosinophils % Basophils % Metamyelocytes % Myelocytes % Nucleated RBC % Absolute Neutrophils Absolute Lymphocytes Absolute Monocytes Absolute Eosinophils Absolute Basophils RBC Morphology Polychromasia Hypochromasia Macrocytosis VBG Lactate Sodium Potassium Chloride Carbon Dioxide Anion Gap BUN Creatinine Estimated GFR/1.73 m2 Glucose Calcium Magnesium Total Bilirubin AST ALT Alkaline Phosphatase Troponin I < 0.05 Total Protein Albumin TSH Urine Color Yellow Urine Clarity Sl Cloudy Urine pH 7.0 Ur Specific [place] 1.015 Urine Protein 100 H Urine Ketones Negative Urine Blood Negative Urine Nitrite Positive H Urine Bilirubin Negative Urine Urobilinogen 0.2 Ur Leukocyte Esterase Small H Urine RBC Negative Urine WBC >50 H Ur Epithelial Cells Few Urine Crystals Negative Urine Bacteria Many Urine Casts Negative Urine Mucus Moderate Urine Other Negative Ur Culture Indicated? Yes Urine Glucose Negative COVID-19 Source Nasal/Nares SARS-CoV-2 (PCR) Negative Last Vital Signs Temp 37 C 11/06/20 16:28 Pulse 94 H 11/06/20 16:28 Resp 16 11/06/20 13:21 BP 145/68 H 11/06/20 16:28 Pulse Ox 97 11/06/20 16:28
[2020-11-06] MEDS: Acetaminophen 325 MG TAB 650 MG PO (19:07)
[2020-11-06] MEDS: Normal Saline 1,000 ML 75 ML IV (19:08)
--- NOTE | 2020-11-06 19:55 | DI.CT_ITS ---
Exam(s) CT HEAD WO EXAM: CT HEAD WO CLINICAL HISTORY: headache, LOC. TECHNIQUE: Imaging Protocol: Axial computed tomography images with coronal and sagittal reformatted images were created and reviewed COMPARISON: CT HEAD WITHOUT CONTRAST from 06/01/2015 FINDINGS: There are no skull fractures. However, there is complete opacification of the right maxillary sinus now evident and opacification of the right sphenoid sinus, right ethmoid air cells, and right sided frontoethmoidal recess. Also mucosal thickening in the frontal sinuses which was not previously pres ent. There is no evidence of intracranial hemorrhage, mass effect, or shift of midline structures. There are no extra-axial fluid collections. The ventricles are not enlarged or shifted and there is no blo od within the ventricular system nor within the basal cisterns. IMPRESSION: No acute intracranial findings on this noninfused CT scan of the brain. However, there is significant sinusitis as described above, finding which was not evident on the prio r CT scan of 2016. RADIATION DOSE DELIVERED: 628.83mGy.cm Total DLP DATA REPOSITORY: All CT scans at this facility are submitted to the National Radiology Data Registry (NRDR) Dose Index Registry (DIR) with the [employer] (A[employer]). RADIATION OPTIMIZATION: All CT scans at this facility use at least one of these dose optimization te chniques: automated exposure control; mA and/or kV adjustment per patient size (includes targeted exa ms where dose is matched to clinical indication); or iterative reconstruction.
--- NOTE | 2020-11-06 20:08 | DI.VRAD_ITS ---
PROCEDURE INFORMATION: Exam: CT Head Without Contrast Exam date and time: 11/06/2020 7:00 PM Age: 84 years old Clinical indication: Other: Headache, loc TECHNIQUE: Imaging protocol: Computed tomography of the head without contrast. Radiation optimization: All CT scans at this facility use at least one of these dose optimization techniques: automated exposure control; mA and/or kV adjustment per patient size (includes targeted exams where dose is matched to clinical indication); or iterative reconstruction. COMPARISON: CT HEAD WITHOUT CONTRAST 06/01/2015 10:24 PM FINDINGS: Brain: Cerebral volume loss noted. Scattered areas of decreased attenuation in the deep periventricular white matter consistent with small vessel ischemic change. No evidence for acute intracranial hemorrhage. Cerebral ventricles: No ventriculomegaly. Paranasal sinuses: Fairly significant right maxillary sinus and sphenoid sinus opacification. There is moderate right frontal and ethmoid involvement. Mastoid air cells: Visualized mastoid air cells are well aerated. Bones/joints: Unremarkable. No acute fracture. Soft tissues: Unremarkable. IMPRESSION: Senescent changes noted. No acute intracranial abnormality. Dictated and Authenticated by: Charlene Lock MD. Ordering:GENESIS Godinez MD
[2020-11-06] MEDS: Ketoconazole 2% CREAM 15 GM TUBE TP (21:23)
[2020-11-06] MEDS: Magnesium Lactate-SR 84 MG TABCR PO (21:23)
[2020-11-06] MEDS: Nystatin CREAM 30 GM TUBE TP (21:24)
[2020-11-06] MEDS: MAGNESIUM SULFATE 2 GM/50 ML BAG IVPB (21:25)
[2020-11-07] VITALS (18 sets, daily range): BP systolic 158–180; BP diastolic 58–82; PULSE 79–95; RESP 12–22; TEMP 36.6–37.3; O2SAT 92–99
[2020-11-07] MEDS: CEFEPIME 1 GM in Normal Saline 50 ML IVPB ×2 (02:52→21:28)
[2020-11-07 07:33] LABS: Anion Gap 9.7 mmol/L (3-11); BUN 24 mg/dL (7-18); CO2 22.3 mmol/L (21.0-32.0); CREATININE 1.3 mg/dL (0.55-1.02); Calcium 9.1 mg/dL (8.5-10.1); Chloride 102 mmol/L (98-107); Estimated GFR 39.02 (mL/min/1.73m2); Glucose 105 mg/dL (74-106); Magnesium 2.5 mg/dL (1.8-2.4); Potassium 3.8 mmol/L (3.5-5.1); Sodium 134 mmol/L (136-145)
[2020-11-07 08:28] LABS: Abs Immature Grans 0.01 10^3/uL (0.0-0.06); MCH 38.7 pg (27.0-33.0); MCHC 35.4 % (32.0-36.0); MCV 109.2 fL (80-95); MPV 11.8 fL (8.0-11.0); Nucleated RBC 0 %; RBC 1.73 10^6/uL (3.93-5.22)
[2020-11-07] MEDS: Cyanocobalamin 500 MCG TAB 1000 MCG PO (08:30)
[2020-11-07] MEDS: Ascorbic Acid 500 MG TAB PO (08:30)
[2020-11-07] MEDS: Losartan 50 MG TAB 100 MG PO (08:30)
[2020-11-07] MEDS: Multivitamin w/Minerals TAB 1 TAB PO (08:30)
[2020-11-07] MEDS: Omeprazole 20 MG CAPCR PO (08:30)
[2020-11-07] MEDS: Nystatin CREAM 15 GM TUBE TP ×3 (08:31→21:24)
[2020-11-07] MEDS: Ketoconazole 2% CREAM 15 GM TUBE TP ×2 (08:32→21:35)
[2020-11-07 08:33] LABS: WBC 0.77 10^3/uL (4.4-10.8)
[2020-11-07 08:34] LABS: HCT 18.9 % (36.0-46.0)
[2020-11-07 08:35] LABS: HGB 6.7 g/dL (11.2-15.7); Platelet Count 81 10^3/uL (130-400)
[2020-11-07 08:36] LABS: Absolute Eosinophil Count 0.02 10^3/uL (0.0-0.7); Absolute Lymphocyte Count 0.34 10^3/uL (1.2-3.4); Absolute Monocyte Count 0.07 10^3/uL (0.1-0.8); Absolute Neutrophil Count 0.34 10^3/uL (1.2-6.7); Diff Comment Manual Differential
[2020-11-07 08:37] LABS: Anisocytosis 2+; Macrocytosis 2+; Polychromasia Present
[2020-11-07] MEDS: Normal Saline 1,000 ML 75 ML IV (10:56)
--- NOTE | 2020-11-07 11:59 | W.PM.PROGNOT ---
Date of Service Date of service: 11/07/20 Time of Service: 09:00 Assessment and Plan Assessment and plan (1) Myelodysplastic syndrome, unspecified: Status: Chronic Assessment and plan: worsening pancytopenia in setting of UTI and TAPAN. Patient was started on cefepime for her UTI, her urine culture is preliminary reading of E. coli and her blood culture has been no growth after 24hr. In light of the urine culture growing E. coli I will de-escalate to Rocephin at 1 gm daily. will also check renal U.S. In light of her decreased ANC I have added filgastrim to try to improve her WBC counts. I have also ordered PRBC for her anemia (2) UTI (urinary tract infection): Status: Acute Assessment and plan: as above. Qualifiers: Urinary tract infection type: site unspecified Hematuria presence: without hematuria Qualified Code(s): N39.0 - Urinary tract infection, site not specified (3) Acute kidney injury superimposed on chronic kidney disease: Status: Acute Assessment and plan: improving w/ iv fluids (4) Dehydration: Status: Acute Assessment and plan: as above (5) Anemia: Status: Chronic Assessment and plan: tranfusion as noted above. Qualifiers: Anemia type: bone marrow failure Bone marrow failure anemia type: unspecified bone marrow failure Qualified Code(s): D61.9 - Aplastic anemia, unspecified (6) DVT prophylaxis: Status: Acute Assessment and plan: TEDS and SCD; not candidate for enoxaparin d/t her pancytopenia and dropping platelet counts. Subjective Subjective Interval history since last seen: patient presented yesterday w/ generalized weakness, poor appetite and an episode of emesis which may have been associated w/ syncope. She denies any fever, rigors, chills or dysuria yet she was found to have evidence for UTI w/ abnormal UA (+nitirites, small leukocyte estrase, >50 WBC, many bacteria) and developed low grade fever of 38.1 on admission. She was started on cefepime d/t her hx of MDS. She has pancytopenia which has worsened overnight w/ WBC decr. from 1400 which appears to be her baseline down to 770 w/ ANC of 340. Her Hb dropped from 8.3 gm to 6.7 gm and her platelets dropped from 106,000 to 81,000. She presented w/ TAPAN in setting of CKD. BUN 24 and creatinine 1.7 up from her baseline of 21 and 1.5. Today she is down to 24 and 1.3 after IV fluids. I spoke w/ her about her dropping blood counts. It sounds like she was seeing a figure skater at [facility], Dr. Zepeda. I looked him up and he is in fact a figure skater/oncologist affiliated w/ [facility]. His name is Ej Zepeda, [facility] Hemat[facility]Oncology Group; [phone]. She says that he referred her to [place]. Maciel Petty [place] [facility] [place] [facility]; whom she only saw once for her pancytopenia and wanted her to go to [facility] [place], [place] for bone marrow biopsy but she did not follow up w/ him d/t she did not like his personality and presentation. Patient denies any melena or hematochezia or hx of bleeding ulcers. She says that Dr. Zepeda has her check her blood counts every 3 to 4 weeks and if her Hb gets below 8 gm then she gets transfused. I discussed her current state of pancytopenia and her symptoms of fatigue and syncope/near syncope and she is agreeable to transfusion. Because of her prior transfusions and her probable MDS she will need special cross matching and CMV negative blood therefore this will have to be obtained from [place] ([facility]). I will transfuse her 2 units of blood tonight and put her on Neupogen for her leukopenia/neutropenia since she has a current UTI. Exam Narrative Exam Narrative: Elderly female who is pale but alert and oriented No epistaxis Neck: supple, no JVD, no bruits or adenopathy Lungs: clear Heart: regular rate and rhythm Abdomen: soft and nontender Extremities: multiple skin bruises. Objective Last Vital Signs Temp 36.9 C 11/07/20 03:37 Pulse 86 11/07/20 07:13 Resp 18 11/07/20 03:37 BP 162/58 H 11/07/20 03:37 Pulse Ox 92 11/07/20 03:37 Laboratory Results - last 24 hr 11/06/20 11/06/20 11/06/20 13:10 14:00 14:11 WBC RBC Hgb Hct MCV MCH MCHC RDW Plt Count MPV Immature Gran % Neutrophils % Lymphocytes % Monocytes % Eosinophils % Basophils % Nucleated RBC % Absolute Neutrophils Absolute Lymphocytes Absolute Monocytes Absolute Eosinophils Absolute Basophils RBC Morphology Polychromasia Anisocytosis Macrocytosis Sodium Potassium Chloride Carbon Dioxide Anion Gap BUN Creatinine Estimated GFR/1.73 m2 Glucose Calcium Magnesium Troponin I < 0.05 Urine Color Yellow Urine Clarity Sl Cloudy Urine pH 7.0 Ur Specific [place] 1.015 Urine Protein 100 H Urine Ketones Negative Urine Blood Negative Urine Nitrite Positive H Urine Bilirubin Negative Urine Urobilinogen 0.2 Ur Leukocyte Esterase Small H Urine RBC Negative Urine WBC >50 H Ur Epithelial Cells Few Urine Crystals Negative Urine Bacteria Many Urine Casts Negative Urine Mucus Moderate Urine Other Negative Ur Culture Indicated? Yes Urine Glucose Negative COVID-19 Source Nasal/Nares SARS-CoV-2 (PCR) Negative Crossmatch 11/07/20 11/07/20 11/07/20 06:42 06:42 10:48 WBC 0.77 L* D RBC 1.73 L Hgb 6.7 L* Hct 18.9 L* D MCV 109.2 H MCH 38.7 H MCHC 35.4 RDW Plt Count 81 L MPV 11.8 H Immature Gran % 0.0 Neutrophils % 44.0 Lymphocytes % 44.0 Monocytes % 9.0 Eosinophils % 3.0 Basophils % 0.0 Nucleated RBC % 0 Absolute Neutrophils 0.34 L* Absolute Lymphocytes 0.34 L Absolute Monocytes 0.07 L Absolute Eosinophils 0.02 Absolute Basophils 0.00 RBC Morphology See Below Polychromasia Present Anisocytosis 2+ Macrocytosis 2+ Sodium 134 L Potassium 3.8 Chloride 102 Carbon Dioxide 22.3 Anion Gap 9.7 BUN 24 H Creatinine 1.3 H Estimated GFR/1.73 m2 39.02 Glucose 105 Calcium 9.1 Magnesium 2.5 H Troponin I Urine Color Urine Clarity Urine pH Ur Specific [place] Urine Protein Urine Ketones Urine Blood Urine Nitrite Urine Bilirubin Urine Urobilinogen Ur Leukocyte Esterase Urine RBC Urine WBC Ur Epithelial Cells Urine Crystals Urine Bacteria Urine Casts Urine Mucus Urine Other Ur Culture Indicated? Urine Glucose COVID-19 Source SARS-CoV-2 (PCR) Crossmatch See Detail
--- NOTE | 2020-11-07 12:04 | IN_ITS ---
Date of service: 11/07/20 Time of Service: 09:45 PT Notes Visit Reasons: UTI, Dehydration with Hyperkalemia, TAPAN and CKD Inpatient Physical Therapy Evaluation Date: 11/07/2020 Referring Doctor: Dr. Gretchen Mas PT Orders: PT CONSULT: Limited ability Precautions: Reverse precautions secondary to blood condition Patient Profile/Admitting Diagnosis: Patient is an 84-year-old female referred for evaluation and treatment planning secondary to hospital admittance. Patient came to the ED on 11/06/2020 complaining of not feeling well, weakness and poor appetite with a right-sided headache. PMHX: Medical History Anemia BCC (basal cell carcinoma of skin) 06/14/15 Dr Ba-Right nasal sidewall 12/2017 Dr Ba-right inferior nasal alar sill Chronic kidney disease, stage III (moderate) (07/24/12) onset 2006; renal US 12/2008 WNL Esophageal reflux (07/01/11) Essential hypertension (12/20/12) FRS 28%; white coat effect HLD (hyperlipidemia) HTN (hypertension) Humeral fracture (06/04/15) displaced 2 part fracture proximal right humerous Hyperlipidemia (07/01/11) 2013 PCEq 28% LDL baseline 188, declines statins Hypomagnesemia (07/04/14) on HCTZ Leukopenia (06/06/14) Dr Jaramillo [facility]: ?early myelodysplasia: CBC q6m Osteoporosis, unspecified (07/01/11) DEXA 2004 spine T -3.7, hip T -1.7; intolerant alendronate; 2015 reluctant re meds Pancytopenia SCCA (squamous cell carcinoma) of skin 12/2017 Dr Ba right anterior charles Syncope (02/10/14) Surgical History Extraction of cataract (04/30/13) left eye Pacemaker (10/27/15) Dr. Hobson [facility] Social History/Home Situation: Patient lives alone with her cat. Multilevel home with automated chairlift to get upstairs. Has 2 stairs into her dwelling w ith a railing. Current Functional Limitations: . Baseline is full functional ability without use of an assistive device. Equipment Owned/DME: None Subjective: Patient states she is feeling better than when she was first admitted. Think she is having a transfusion later in the day secondary to her myelodysplastic syndrome. No pain. Objective: General Observation: Telemetry, IV right forearm. Upon start of evaluation patient was sitting on commode bedside. Was waiting for nursing to come back but nursing got called out for another patient. Very pleasant and communicative. No pain Mental Status: Alert and oriented x4 ROM: Right Upper Extremity: Within functional limit Left Upper Extremity: Within functional limits Right Lower Extremity: Within functional limits Left Lower Extremity: Within functional limits Strength: Right Upper Extremity: 4/5 throughout upper extremity major muscle groups shoulder flexion, abduction, bicep and tricep. Good sterile proc tech. Left Upper Extremity: 4/5 throughout upper extremity major muscle groups shoulder flexion, abduction bicep and tricep. Good sterile proc tech. Right Lower Extremity: 4-/5 for flexion, quads, hamstrings, seated hip abduction and adduction Left Lower Extremity: 4-/5 hip flexion, quads, hamstrings, seated hip abduction and adduction Sensation: Intact sensation light touch bilateral lower extremities Bed Mobility/Transfers: Sit?stand: Standby assist Stand?sit: Standby assist Bed mobility: Independent Bed?chair: Standby assist Gait: In room only secondary to precautions. 30 feet with contact-guard and use of front wheel walker. Additional 20 feet following with contact-guard no assistive device. On ambulation patient returned to bed with automated compression applied to bilateral lower extremities. Balance: Static Sitting: Normal Dynamic Sitting: Normal Static Standing: Normal Dynamic Standing: Normal Special Tests: Mobility Limitations Standardized Measure [facility] AM-PAC 6 clicks Basic Mobility Inpatient Short Form: Raw Score: 22 Standardized Score: 53.28 CMS Score: 20.91 Informed Consent/Education: Patient instructed in purpose of PT consult and plan of care. Assessment: Weakness in BLE, decreased activity tolerance which limit functional mobility performance at this time. Patient presents with clinical signs and symptoms consistent with current/admitting diagnoses that have resulted to mobility limitations and generalized weakness as demonstrated by the following impairment level findings: 1. Decreased strength to B LE major muscle groups 2. Impaired activity tolerance Impairments are continuing to contribute to the following functional limitations: 1. Increase completion time for mobility ADL performance Patient is assessed as a [] Low 88108 X moderate [id number] [] High 56915 complexity based on the following: History: As above Examination: As above Presentation: Evolving Decision Makin.91%AM-PAC Goals: Goals X1 week 1. Supine-Sit independent 2. Sit-Supine independent 3. Sit-Stand independent 4. Stand-Sit independent 5. Bed-Chair independent 6. Chair-Bed independent 7. Good static and dynamic standing balance/tolerance Plan of Care/Treatment Plan: 1-2x/day, 7 days/week x 1 week. Plan of care has been reviewed with the BOTTLE FEEDER providing the service under Physical Therapy direction. Initiate Physical Therapy intervention for strengthening, bed mobility, transfers, gait, stairs, balance training, use of assistive device. DISCHARGE RECOMMENDATIONS: Home once medically cleared. TREATMENT CODE/TIME: 91328 initial valuation 30 minutes time [id number] Micheal Woodson PT, DPT Disclaimer: This note was created using [employer] voice recognition software. It was reviewed for major content. However, there may be multiple small discrepancies and errors due to the voice recognition aspects of the software.
[2020-11-07] MEDS: diphenhydrAMINE 25 MG CAP PO (13:09)
[2020-11-07] MEDS: Normal Saline 500 ML 30 ML IV (13:10)
[2020-11-07] MEDS: Magnesium Lactate-SR 84 MG TABCR PO (21:24)
[2020-11-08] VITALS (10 sets, daily range): BP systolic 150–175; BP diastolic 62–94; PULSE 77–101; RESP 17–20; TEMP 36.7–38.5; O2SAT 94–96
[2020-11-08] MEDS: Normal Saline 1,000 ML 30 ML IV (01:08)
[2020-11-08] MEDS: Normal Saline Flush 10 ML SYR IVP (01:09)
[2020-11-08] MEDS: CEFEPIME 1 GM in Normal Saline 50 ML IVPB (05:41)
[2020-11-08 07:21] LABS: HCT 27.2 % (36.0-46.0); HGB 9.6 g/dL (11.2-15.7); MCH 34.7 pg (27.0-33.0); MCHC 35.3 % (32.0-36.0); MCV 98.2 fL (80-95); MPV 11.7 fL (8.0-11.0); RBC 2.77 10^6/uL (3.93-5.22); WBC 2.22 10^3/uL (4.4-10.8)
[2020-11-08 07:41] LABS: Absolute Eosinophil Count 0.11 10^3/uL (0.0-0.7); Absolute Lymphocyte Count 0.38 10^3/uL (1.2-3.4); Absolute Monocyte Count 0.11 10^3/uL (0.1-0.8); Absolute Neutrophil Count 1.62 10^3/uL (1.2-6.7); Anisocytosis 3+; Bands % 11; Diff Comment Manual Differential
[2020-11-08 07:42] LABS: Macrocytosis 2+; Microcytosis 1+; Platelet Count 70 10^3/uL (130-400); Spherocytes 1+
[2020-11-08] MEDS: Cyanocobalamin 500 MCG TAB 1000 MCG PO (08:11)
[2020-11-08] MEDS: Ascorbic Acid 500 MG TAB PO (08:11)
[2020-11-08] MEDS: Multivitamin w/Minerals TAB 1 TAB PO (08:12)
[2020-11-08] MEDS: Magnesium Lactate-SR 84 MG TABCR PO ×2 (08:12→20:56)
[2020-11-08] MEDS: Ketoconazole 2% CREAM 15 GM TUBE TP ×2 (08:12→20:57)
[2020-11-08] MEDS: Losartan 50 MG TAB 100 MG PO (08:12)
[2020-11-08] MEDS: Omeprazole 20 MG CAPCR PO (08:12)
[2020-11-08] MEDS: Nystatin CREAM 15 GM TUBE TP ×2 (08:13→20:57)
[2020-11-08 08:14] LABS: Anion Gap 10.8 mmol/L (3-11); BUN 23 mg/dL (7-18); CO2 20.2 mmol/L (21.0-32.0); CREATININE 1.3 mg/dL (0.55-1.02); Calcium 8.2 mg/dL (8.5-10.1); Chloride 104 mmol/L (98-107); Estimated GFR 39.02 (mL/min/1.73m2); Glucose 104 mg/dL (74-106); Potassium 4.2 mmol/L (3.5-5.1); Sodium 135 mmol/L (136-145)
[2020-11-08] MEDS: Acetaminophen 325 MG TAB 650 MG PO (08:36)
[2020-11-08 10:14] LABS: Procalcitonin 0.1 ng/mL
--- NOTE | 2020-11-08 12:03 | PT.INTREAT ---
PT Notes Visit Reasons: UTI, Dehydration with Hyperkalemia, TAPAN and CKD Inpatient Physical Therapy Treatment Note [facility] Date: 11/08/20 SUBJECTIVE: Marysol states that she is feeling better. She is willing to go for a walk with me, but uncertain how much she can do as she has not been out of bed much at all. OBJECTIVE: [] BED MOBILITY/TRANSFERS Supine-sit: SBA Sit-supine:SBA Sit-stand: SBA Stand-sit: SBA GAIT Assistive Device: FWW Weight bearing: full Assist: SBA Distance: 200' ASSESSMENT: tolerated session well. Held ex as she went for a long walk and had not been out of bed. She reports her legs feeling tired. PLAN: will progress her strength and functional mobility to tolerance, following PT POC. TREATMENT CODE/TIME: 20 min. [id number].
--- NOTE | 2020-11-08 17:18 | W.PM.PROGNOT ---
Date of Service Date of service: 11/08/20 Time of Service: 17:19 Assessment and Plan Assessment and plan (1) UTI (urinary tract infection): Status: Acute Assessment and plan: blood cultures negative. urine culture positive for E. coli (sensitive to cephalosporins; patient currently on Rocephin). cont. Rocephin, treat her fever w/ Tylenol; check renal US in the a.m. recheck CBC in the a.m. If she maintains a leukocytosis then no need for further filgastrim Qualifiers: Urinary tract infection type: site unspecified Hematuria presence: without hematuria Qualified Code(s): N39.0 - Urinary tract infection, site not specified (2) Myelodysplastic syndrome, unspecified: Status: Chronic Assessment and plan: Patient has responded to the filgastrim. Although I ordered repeat doses on daily basis, if her ANC is adequate tomorrow, then I will dc the filgastrim (3) Acute kidney injury superimposed on chronic kidney disease: Status: Acute Assessment and plan: improving w/ iv fluids; continue iv fluids particularly in light of her nausea and not eating dinner this evening. monitor urine output and repeat BMP in the a.m. (4) Anemia: Status: Chronic Assessment and plan: s/p transfusion of 2 units of PRBC yesterday w/ rise in her Hb from 6.7 gm yesterday to 9.6 gm today Qualifiers: Anemia type: bone marrow failure Bone marrow failure anemia type: unspecified bone marrow failure Qualified Code(s): D61.9 - Aplastic anemia, unspecified (5) Dehydration: Status: Acute Assessment and plan: as above (6) DVT prophylaxis: Status: Acute Assessment and plan: TEDS and SCD; not candidate for enoxaparin d/t her pancytopenia and dropping platelet counts. Subjective Subjective Interval history since last seen: Patient had good morning but through the day has developed recurrent fevers. Temp up to 38.5. Her blood cultures from 11/06 had no growth but her urine culture has E. coli which is sensitive to cephalopsporins but resistant to quinolones (Levaquin and Cipro) and also to ampicillin, ampicillin/sulbactam but sensitive to Zosyn, Bactrim and gent and tobra. She was on cefepime but I have changed this to ceftriaxone. At this point I think that either she is spiking fevers now due to her now being able to mount an immune response. She was given filgastrim yesterday and her WBC count adan from 770 (0.7) to 2,220 (2.22) and her ANC is now 1600. At present I will stay the course on Rocephin 1 gm daily. However, I will check renal/bladder U.S. tomorrow. She is nauseated but no vomiting and no abdominal pains. She denies any dyspnea. Exam Narrative Exam Narrative: Patient is alert and oriented x 3; she appears ill but not toxic Lungs: bibasilar rales; no rhonchi or wheezing Heart: RRR Abdomen: soft, nontender, mild distension, umbilical hernia which is not incarcerated. Objective Last Vital Signs Temp 37.2 C 11/08/20 12:47 Pulse 77 11/08/20 14:20 Resp 20 11/08/20 12:47 BP 150/66 H 11/08/20 12:47 Pulse Ox 96 11/08/20 12:47 Laboratory Results - last 24 hr 11/07/20 11/08/20 11/08/20 06:42 07:07 07:07 WBC 2.22 L D RBC 2.77 L Hgb 9.6 L D Hct 27.2 L D MCV 98.2 H MCH 34.7 H MCHC 35.3 RDW Plt Count 70 L MPV 11.7 H Immature Gran % 0.0 Neutrophils % 62.0 Band Neutrophils % 11 Lymphocytes % 17.0 Monocytes % 5.0 Eosinophils % 5.0 Basophils % 0.0 Absolute Neutrophils 1.62 Absolute Lymphocytes 0.38 L Absolute Monocytes 0.11 Absolute Eosinophils 0.11 Absolute Basophils 0.00 RBC Morphology See Below Anisocytosis 3+ Microcytosis 1+ Macrocytosis 2+ Spherocytes 1+ Sodium 135 L Potassium 4.2 Chloride 104 Carbon Dioxide 20.2 L Anion Gap 10.8 BUN 23 H Creatinine 1.3 H Estimated GFR/1.73 m2 39.02 Glucose 104 Calcium 8.2 L Procalcitonin Patient ABO/Rh O Positive Antibody Screen NEGATIVE Crossmatch See Detail 11/08/20 09:33 WBC RBC Hgb Hct MCV MCH MCHC RDW Plt Count MPV Immature Gran % Neutrophils % Band Neutrophils % Lymphocytes % Monocytes % Eosinophils % Basophils % Absolute Neutrophils Absolute Lymphocytes Absolute Monocytes Absolute Eosinophils Absolute Basophils RBC Morphology Anisocytosis Microcytosis Macrocytosis Spherocytes Sodium Potassium Chloride Carbon Dioxide Anion Gap BUN Creatinine Estimated GFR/1.73 m2 Glucose Calcium Procalcitonin 0.1 Patient ABO/Rh Antibody Screen Crossmatch
[2020-11-08] MEDS: ACETAMINOPHEN 1,000 MG/100 ML BTL 400 MG IVPB (17:44)
[2020-11-08] MEDS: cefTRIAXone 1 GM/50 ML BAG IVPB (18:22)
[2020-11-09] VITALS (9 sets, daily range): BP systolic 156–178; BP diastolic 74–94; PULSE 86–106; RESP 14–19; TEMP 36.6–38.7; O2SAT 91–92
[2020-11-09] MEDS: Normal Saline 1,000 ML 85 ML IV (00:01)
[2020-11-09] MEDS: ACETAMINOPHEN 1,000 MG/100 ML BTL 400 MG IVPB (01:27)
[2020-11-09] MEDS: Omeprazole 20 MG CAPCR PO (07:12)
[2020-11-09] MEDS: Ascorbic Acid 500 MG TAB PO (07:43)
[2020-11-09] MEDS: Losartan 50 MG TAB 100 MG PO (07:43)
[2020-11-09] MEDS: Cyanocobalamin 500 MCG TAB 1000 MCG PO (07:43)
[2020-11-09] MEDS: Multivitamin w/Minerals TAB 1 TAB PO (07:44)
[2020-11-09] MEDS: Magnesium Lactate-SR 84 MG TABCR PO ×2 (07:44→21:11)
[2020-11-09] MEDS: Ketoconazole 2% CREAM 15 GM TUBE TP (07:52)
[2020-11-09] MEDS: Nystatin CREAM 15 GM TUBE TP ×2 (07:52→14:43)
[2020-11-09 07:58] LABS: Absolute Basophil Count 0.02 10^3/uL (0.0-0.2); HCT 26.6 % (36.0-46.0); HGB 9.1 g/dL (11.2-15.7); MCHC 34.2 % (32.0-36.0); MCV 99.3 fL (80-95); Nucleated RBC 0 %; RBC 2.68 10^6/uL (3.93-5.22)
--- NOTE | 2020-11-09 08:00 | DI.US_ITS ---
Exam(s) US RENAL EXAM: US RENAL CLINICAL HISTORY: UTI; r/o pyelonephritis; r/o nephrolithiasis TECHNIQUE: Ultrasound of both kidneys performed using standard protocol. COMPARISON: No exams were available for comparison FINDINGS: RIGHT KIDNEY: Measures 9.8 cm in length. No cysts evident. Normal cortical thickness and corticomedullary different iation .No solid masses No intrarenal calculi nor hydronephrosis. LEFT KIDNEY: Measures 9.5 cm in length. No cysts evident. Normal cortical thickness and corticomedullary differen tiaion. No solids masses. No intrarenal calculi nor hydonephrosis. URINARY BLADDER: Prevoid volume is 5156 cc Postvoid volume was not calculated as this patient was apparently unable to void No evidence of bladder mass nor diverticuli. IMPRESSION: 1. No significant focal findings in the kidneys. 2. No obvious mass in the urinary bladder. However, prevoid volume was only 157 cc. Patient was apparently not able to void. DATA REPOSITORY:
[2020-11-09 08:13] LABS: ALT 63 U/L (14-59); AST 46 U/L (15-37); Alkaline Phosphatase 80 U/L (46-116); Anion Gap 13.9 mmol/L (3-11); BUN 19 mg/dL (7-18); Bilirubin, Total 1.2 mg/dL (0.2-1.0); C-Reactive Protein 14.78 mg/dL (0.0-0.3); CO2 18.1 mmol/L (21.0-32.0); CREATININE 1.3 mg/dL (0.55-1.02); Calcium 8.1 mg/dL (8.5-10.1); Chloride 104 mmol/L (98-107); Estimated GFR 39.02 (mL/min/1.73m2); Glucose 105 mg/dL (74-106); Potassium 4.2 mmol/L (3.5-5.1); Sodium 136 mmol/L (136-145); Total Protein 6.6 g/dL (6.4-8.2)
[2020-11-09 08:16] LABS: Bands % 7
[2020-11-09 08:17] LABS: Absolute Lymphocyte Count 0.34 10^3/uL (1.2-3.4); Absolute Monocyte Count 0.04 10^3/uL (0.1-0.8); Anisocytosis 3+; Diff Comment Manual Differential; Macrocytosis 2+; Polychromasia Present
[2020-11-09 08:18] LABS: Platelet Count 65 10^3/uL (130-400)
[2020-11-09 09:38] LABS: Vitamin D 25 Total 104.7 ng/mL (30-100)
--- NOTE | 2020-11-09 09:45 | PTTR_ITS ---
PT Notes Visit Reasons: UTI, Dehydration with Hyperkalemia, TAPAN and CKD 11/09/2020 SUBJECTIVE: Feeling a little better but complains of SOB upon exertion. OBJECTIVE: TRANSFERS Supine to sit: SBA Sit to supine: SBA Sit to stand: SBA Stand to sit: SBA GAIT Device: FWW Weight bearing: Full Assist: SBA Distance: 200' Deviation: SOB post ambulation TOILETING: Mod A with toileting and self care. VITALS: Post ambulation 86%, 137 b/m, post 2 minutes 92%, 114 b/m RA ASSESSMENT: Tolerates functional ambulation and mobility well although fatigues quickly with SOB and increased heart rate and respiratory rate. PLAN: Continue per POC adding steps as she is able to tolerate. Treatment time: 23 minutes [id number] Nidia Meraz, TALENT ACQUISITION ADMINISTRATOR
[2020-11-09 10:36] LABS: CMV IgG Antibody Positive (See Note)
--- NOTE | 2020-11-09 14:46 | CHAPLAIN ---
I had a brief visit with Marysol. She was resting in bed waiting for her phone to charge. I explained my role and offered support.
--- NOTE | 2020-11-09 15:05 | PT.INNT ---
PT Notes Visit Reasons: UTI, Dehydration with Hyperkalemia, TAPAN and CKD 11/09/2020 Refused PM PT today. Pt noting she is quite fatigued and may have overdone her activity this AM. Resume PT tomorrow. Nidia Meraz, SURVEY RESEARCH ANALYST
--- NOTE | 2020-11-09 15:32 | PHA.REVIEW ---
Pharmacy Admission Review - Admission Clinical Review (Last Reviewed 11/06/20 @ 10:27 by Robyn Nam MD) Hypercalcemia (Acute) Discharge planning issues (Acute) DVT prophylaxis (Acute) Acute kidney injury superimposed on chronic kidney disease (Acute) Dehydration (Acute) UTI (urinary tract infection) (Acute) Hypomagnesemia (Acute) Hyponatremia (Acute) alendronate sodium Adverse Reaction (Intermediate, Verified 11/06/20 09:58) Polymyalgia amlodipine Adverse Reaction (Intermediate, Verified 11/06/20 09:58) Peridontal disease metoclopramide Adverse Reaction (Intermediate, Verified 11/06/20 09:58) Shaky metoprolol Adverse Reaction (Intermediate, Verified 11/06/20 09:58) dizzy, sore gums chlorthalidone Adverse Reaction (Unknown, Verified 11/06/20 09:58) n/v lisinopril Adverse Reaction (Unknown, Verified 11/06/20 09:58) unknown rxn Sulfa (Sulfonamide Antibiotics) Adverse Reaction (Unknown, Verified 11/06/20 09:58) Yeast Infection Resuscitation Status Full Code Height 4 ft 11 in Weight 60.6 kg - Renal Dosing Renal Dosing: BUN 19 mg/dL (7-18) H 11/09/20 07:33 Creatinine 1.3 mg/dL (0.55-1.02) H 11/09/20 07:33 Medications needing adjustments: Reviewed (CrCl ~23.13 ml/min, no current meds require renal dosing adjustments) - Anticoagulation Anticoagulation: Hgb 9.1 g/dL (11.2-15.7) L 11/09/20 07:33 Hct 26.6 % (36.0-46.0) L 11/09/20 07:33 Plt Count 65 10^3/uL (130-400) L 11/09/20 07:33 Creatinine 1.3 mg/dL (0.55-1.02) H 11/09/20 07:33 DVT Prophylaxis: Reviewed (On TEDS and SCD. Enoxaparin held due to thrombocytopenia per progress note.) Therapeutic Anticoagulation: N/A - Opiate Usage Evaluate Pain Scale/Pains Meds: N/A - Relevant Labs Sodium 136 mmol/L (136-145) 11/09/20 07:33 Potassium 4.2 mmol/L (3.5-5.1) 11/09/20 07:33 Chloride 104 mmol/L (98-107) 11/09/20 07:33 Magnesium 2.5 mg/dL (1.8-2.4) H 11/07/20 06:42 C-Reactive Protein 14.78 mg/dL (0.0-0.3) H 11/09/20 07:33 Electrolytes, C-Reactive P, ESR: Reviewed - DM Control DM Control: Glucose 105 mg/dL (74-106) 11/09/20 07:33 Insulin Dosing: N/A - Heart Failure/CO Heart Failure/CO: Troponin I < 0.05 ng/mL (<0.06) 11/06/20 14:11 EF%, CHARIS's, B-Blockers, Diuretics: Reviewed - BP Control BP Control: Blood Pressure 168/90 Blood Pressure 156/84 Blood Pressure 160/80 If elevated: Intervened (Losartan is ordered but BP has been consistently elevated so far this admission. Will mention to provider.) - Qtc Review If Elevated: N/A (QTc 439 upon admission) - IV to PO Switch IV Medications: Reviewed - Home Meds Home Med List reviewed: Intervened (Ketoconazole and nystatin removed from med list as neither have been filled in almost a year.) Relevent Home Meds Not ordered & why?: HCTZ (held due to dehydration on admission) and cholecalciferol (pt has elevated Vit. D level) - Current meds Current Medication Order Review: Intervened (Asked provider if the pt needed both IV and PO PRN acetaminophen orders.) - Comments Comments/Follow Ups: Continue monitoring Plts, H&H, and ANC. Monitor BP, SCr, and changes in labs or current medication orders. Watch for renal dosing on any new medications. Antibiotic Activity - Pharmacy Antibiotic Review Pharmacy Antibiotic Activity: Reviewed, no change (Pt on Cefriaxone for E. coli. sensitive to Cephalosporins)
[2020-11-09] MEDS: Acetaminophen 325 MG TAB 650 MG PO (16:06)
--- NOTE | 2020-11-09 16:43 | PGE_ITS ---
Date of Service Date of service: 11/09/20 Time of Service: 16:43 Assessment and Plan Assessment and plan (1) UTI (urinary tract infection): Status: Acute Assessment and plan: blood cultures negative. urine culture positive for E. coli (sensitive to cephalosporins; patient currently on Rocephin). Although her E. coli is allegedly sensitive to cephalosporins I think because of her immunocompromised state from her myelodysplastic syndrome she has had trouble fighting off his infection. Slowly since she was given the filgrastim that she has been able to mount a fever. However I am concerned that she may be developing an ESBL E. coli given the fact that she has been on cefepime and Rocephin ever since she was admitted 05/09/2020. I will switch her to meropenem. Qualifiers: Hematuria presence: without hematuria Urinary tract infection type: sit e unspecified Qualified Code(s): N39.0 - Urinary tract infection, site not specified (2) Myelodysplastic syndrome, unspecified: Status: Chronic Assessment and plan: Patient has responded to the filgastrim. ANC is stable. no need for further doses of filgastrim. Will monitor daily CBC (3) Acute kidney injury superimposed on chronic kidney disease: Status: Acute Assessment and plan: stable. tolerating po fluids. iv fluids have been dc'ed. (4) Anemia: Status: Chronic Assessment and plan: s/p transfusion of 2 units of PRBC on 11/07. stable hemograms Qualifiers: Anemia type: bone marrow failure Bone marrow failure anemia type: unspecified bone marrow failure Qualified Code(s): D61.9 - Aplastic anemia, uns pecified (5) Dehydration: Status: Acute Assessment and plan: as above (6) DVT prophylaxis: Status: Acute Assessment and plan: TEDS and SCD; not candidate for enoxaparin d/t her pancytopenia and dropping platelet counts. Subjective Subjective Interval history since last seen: Patient complains that she did not sleep well last night. She indicated that she would like to try to get a good night sleep. She did well with physical therapy today and ambulated around the hospital floor with use of a front wheel walker. Despite appropriate antibiotic therapy she continues to have low-grade fever spikes. T-max this afternoon was 38.7. Currently on Rocephin 1 g IV daily for E. coli is resistant to ampicillin and ampicillin sulbactam as well as fluoroquinolones. However remain sensitive to Zosyn and Bactrim gentamicin and tobramycin and cephalosporins. Blood cultures show no growth. Renal ultrasound showed no significant abnormalities of the kidneys. Specifically there is no evidence of kidney stones or hydronephrosis or signs of pyelonephritis. She received cefepime for the first 2 days of hospitalization from November 06 through November 07 after which she was placed on ceftriaxone which she has been receiving since November 08. Although her urine cultures suggest sensitivity to Zosyn and ceftriaxone I am concerned that she may be developing an ESBL E. coli. If she continues to have fever spikes then we may have to switch her to a Carbapenem. Her blood pressures been elevated today which I am starting her on Diovan and carvedilol since losartan has not been controlling her blood pressure. For her sleeplessness I will put her on a low-dose Ambien CR. As for her MDS her blood counts remain elevated since receiving the blood transfusion and the still gastrum. Her total white count is up to 2100 and her ANC is 1700. Hemoglobin is 9.1 g and remaining stable. Patient denies any dyspnea or chest pain or abdominal pain or nausea or vomiting. She is moving her bowels although somewhat loose but no watery diarrhea. Stools are formed but soft. Exam Narrative Exam Narrative: female lying in bed who appears to be fatigued but in no distress. Lungs are clear to auscultation Heart regular rate and rhythm Abdomen soft nondistended nontender normal bowel sounds. Extremities without peripheral cyanosis or edema Objective Last Vital Signs Temp 38.7 C H 11/09/20 16:06 Pulse 106 H 11/09/20 15:58 Resp 18 11/09/20 15:58 BP 176/94 H 11/09/20 15:58 Pulse Ox 92 11/09/20 15:58 Laboratory Results - last 24 hr 11/07/20 11/07/20 11/09/20 06:42 06:42 07:33 WBC 2.10 L RBC 2.68 L Hgb 9.1 L Hct 26.6 L MCV 99.3 H MCH 34.0 H MCHC 34.2 RDW Plt Count 65 L MPV 12.0 H Immature Gran % 0.0 Neutrophils % 74.0 Band Neutrophils % 7 Lymphocytes % 16.0 Monocytes % 2.0 Eosinophils % 0.0 Basophils % 1.0 Nucleated RBC % 0 Absolute Neutrophils 1.70 Absolute Lymphocytes 0.34 L Absolute Monocytes 0.04 L Absolute Eosinophils 0.00 Absolute Basophils 0.02 RBC Morphology See Below Polychromasia Present Anisocytosis 3+ Macrocytosis 2+ Sodium Potassium Chloride Carbon Dioxide Anion Gap BUN Creatinine Estimated GFR/1.73 m2 Glucose Calcium Total Bilirubin AST ALT Alkaline Phosphatase C-Reactive Protein Total Protein Albumin 25-OH Vitamin D Total 104.7 H* CMV IgG Ab Positive 11/09/20 07:33 WBC RBC Hgb Hct MCV MCH MCHC RDW Plt Count MPV Immature Gran % Neutrophils % Band Neutrophils % Lymphocytes % Monocytes % Eosinophils % Basophils % Nucleated RBC % Absolute Neutrophils Absolute Lymphocytes Absolute Monocytes Absolute Eosinophils Absolute Basophils RBC Morphology Polychromasia Anisocytosis Macrocytosis Sodium 136 Potassium 4.2 Chloride 104 Carbon Dioxide 18.1 L Anion Gap 13.9 H BUN 19 H Creatinine 1.3 H Estimated GFR/1.73 m2 39.02 Glucose 105 Calcium 8.1 L Total Bilirubin 1.2 H AST 46 H ALT 63 H Alkaline Phosphatase 80 C-Reactive Protein 14.78 H Total Protein 6.6 Albumin 3.0 L 25-OH Vitamin D Total CMV IgG Ab
[2020-11-09] MEDS: hydrALAZINE 20 MG/ML VIAL 10 MG IVP (16:47)
--- NOTE | 2020-11-09 17:14 | INITIAL_ITS ---
- If Service Date Differs Date of service: 11/09/20 Time of Service: 17:14 Care Management Initial Assess REASON FOR HOSPITALIZATION:: UTI, Dehydration with hyperkalemia, TAPAN and CKD PAST MEDICAL HISTORY/PAST SURGICAL HISTORY:: Anemia. BCC (basal cell carcinoma of skin). 06/14/15 Dr Ba-Right nasal sidewall. 12/2017 Dr Ba-right inferior nasal alar sill. Chronic kidney disease, stage III (moderate) (07/24/12). onset 2006; renal US 12/2008 WNL. Esophageal reflux (07/01/11). Essential hypertension (12/20/12). FRS 28%; white coat effect. HLD (hyperlipidemia). HTN (hypertension). Humeral fracture (06/04/15). displaced 2 part fracture proximal right humerous. Hyperlipidemia (07/01/11). 2013 PCEq 28% LDL baseline 188, declines statins. Hypomagnesemia (07/04/14). on HCTZ. Leukopenia (06/06/14). Dr Jaramillo [facility]: ?early myelodysplasia: CBC q6m. Osteoporosis, unspecified (07/01/11). DEXA 2003 spine T -3.7, hip T -1.7; intolerant alendronate; 2016 reluctant re meds. Pancytopenia. SCCA (squamous cell carcinoma) of skin. 12/2017 Dr Ba right anterior charles. Syncope (02/10/14). Extraction of cataract (04/30/13). left eye. Pacemaker (10/27/15). Dr. Hobson [facility] PREVIOUS FUNCTIONAL STATUS/SOCIAL/FAMILY SUPPORTS:: Marysol resides alone in [place], [place]. She has a healthy natural support network of family and friends. CURRENT FUNCTIONAL STATUS:: Marysol was laying in bed, fully engaged with this internal communications writer. ADVANCE DIRECTIVES:: On file: Esther Hobbs as agent. Has patient been provided with info about the portal/API?: Yes Did the patient sign up for the portal?: Yes CODE STATUS:: Full Code INSURANCE COVERAGE / FINANCIAL ISSUES:: BC/BS. Medicare CURRENT HOME/COMMUNITY SERVICES/EQUIPMENT:: Raised toilet seat, walker, electric stair climber PRIMARY CARE PHYSICIAN:: Lindsay Diaz POTENTIAL DISCHARGE NEEDS:: SNF [id number], follow up appointment with PCP PATIENT/FAMILY EDUCATION NEEDS:: Review discharge instructions, discuss Ask Me Three. ANTICIPATED BARRIERS TO DISCHARGE:: None identified at this time. TRANSPORTATION:: TBD by disposition. PLAN:: Marysol will return home with new home health [id number] when medically ready per MD. CM continues to follow.
[2020-11-09] MEDS: Valsartan 80 MG TAB PO (17:30)
[2020-11-09] MEDS: cefTRIAXone 1 GM/50 ML BAG IVPB (17:44)
[2020-11-09] MEDS: Zolpidem 6.25 MG TABCR PO (21:11)
[2020-11-09] MEDS: Carvedilol 3.125 MG TAB PO (21:11)
[2020-11-09] MEDS: MEROPENEM 1 GM in Normal Saline 100 ML IVPB (21:48)
[2020-11-09] MEDS: Normal Saline Flush 10 ML SYR IVP (21:48)
[2020-11-09] MEDS: Normal Saline 500 ML 30 ML IV (21:48)
[2020-11-10] MEDS: Acetaminophen 325 MG TAB 650 MG PO ×2 (03:51→08:08)
[2020-11-10 03:57] VITALS: BP 152/95; PULSE 116; RESP 20; TEMP 38.2; O2SAT 95
[2020-11-10 04:57] VITALS: TEMP 37.2
[2020-11-10] MEDS: Cyanocobalamin 500 MCG TAB 1000 MCG PO (08:08)
[2020-11-10] MEDS: Magnesium Lactate-SR 84 MG TABCR PO ×2 (08:08→20:36)
[2020-11-10] MEDS: Carvedilol 3.125 MG TAB PO (08:08)
[2020-11-10] MEDS: Ascorbic Acid 500 MG TAB PO (08:08)
[2020-11-10] MEDS: Multivitamin w/Minerals TAB 1 TAB PO (08:08)
[2020-11-10] MEDS: Ketoconazole 2% CREAM 15 GM TUBE TP ×2 (08:09→20:35)
[2020-11-10] MEDS: Valsartan 80 MG TAB PO (08:09)
[2020-11-10] MEDS: Omeprazole 20 MG CAPCR PO (08:09)
[2020-11-10] MEDS: MEROPENEM 1 GM in Normal Saline 100 ML IVPB ×2 (08:09→20:35)
[2020-11-10] MEDS: Nystatin CREAM 15 GM TUBE TP ×3 (08:10→20:36)
[2020-11-10 09:29] LABS: HCT 25.8 % (36.0-46.0); HGB 8.8 g/dL (11.2-15.7); MCH 34.4 pg (27.0-33.0); MCHC 34.1 % (32.0-36.0); MCV 100.8 fL (80-95); Nucleated RBC 0 %; RBC 2.56 10^6/uL (3.93-5.22); RDW 25.2 % (11.7-14.6); RDW-SD 84.5 fL
[2020-11-10 09:32] LABS: WBC 1.75 10^3/uL (4.4-10.8)
[2020-11-10 09:38] LABS: BUN 21 mg/dL (7-18); C-Reactive Protein 21.78 mg/dL (0.0-0.3); CREATININE 1.3 mg/dL (0.55-1.02); Calcium 8.8 mg/dL (8.5-10.1); Chloride 103 mmol/L (98-107); Estimated GFR 39.02 (mL/min/1.73m2); Glucose 137 mg/dL (74-106); Potassium 3.8 mmol/L (3.5-5.1); Sodium 134 mmol/L (136-145)
[2020-11-10 09:42] LABS: ALT 58 U/L (14-59); AST 39 U/L (15-37); Albumin 2.9 g/dL (3.4-5.0); Alkaline Phosphatase 93 U/L (46-116); Bilirubin, Direct 0.7 mg/dL (0.0-0.2); Bilirubin, Total 1.3 mg/dL (0.2-1.0); Total Protein 7.1 g/dL (6.4-8.2)
[2020-11-10 09:43] LABS: Absolute Eosinophil Count 0.04 10^3/uL (0.0-0.7); Absolute Lymphocyte Count 0.37 10^3/uL (1.2-3.4); Absolute Monocyte Count 0.11 10^3/uL (0.1-0.8); Absolute Neutrophil Count 1.24 10^3/uL (1.2-6.7); Anisocytosis 2+; Bands % 3; Diff Comment Manual Differential; Platelet Count 66 10^3/uL (130-400)
--- NOTE | 2020-11-10 10:07 | PT.INTREAT ---
PT Notes Visit Reasons: UTI, Dehydration with Hyperkalemia, TAPAN and CKD SUBJECTIVE: Marysol stating she is doing much better today. She notes she slept great last night. She complains less of SOB today during gait. OBJECTIVE: TRANSFERS Supine to sit: I Sit to supine: I Sit to stand: S Stand to sit: S GAIT Device: FWW Weight bearing: Full Assist: SBA Distance 100'x2 Deviation: 3 stand rest breaks, 1 sit rest break Pt education: Discuss energy conservation tips while walking with short stand rest breaks if needed. ASSESSMENT: Tolerates treatment well today with less SOB noted and very quick recovery time post ambulation. PLAN: Continue with current POC. Treatment time: 15 minutes([id number]) Nidia Meraz PTA Clinic location: [facility] [place], [place]
--- NOTE | 2020-11-10 14:59 | PGE_ITS ---
Date of Service Date of service: 11/10/20 Time of Service: 14:59 Assessment and Plan Assessment and plan (1) UTI (urinary tract infection): Status: Acute Assessment and plan: Negative blood cultures but positive urine culture with E. coli which was sensitive to cephalosporins but resistant to quinolones and And ampicillin sulbactam. Patient is currently on meropenem and finally afebrile. Although the sensitivity pattern [place] suggest susceptibility to all the cephalosporins tested in addition to gentamicin and nitrofurantoin and Bactrim she did not really seem to respond until she was put on meropenem. Part of the problem was she was immunosuppressed from her myelodysplastic syndrome. I think once she was given the Neupogen she was able to mount a febrile inflammatory response. He will be difficult determining what antibiotic to send her home on but I suspect she will have to go home on an oral cephalosporin such as Omnicef. Because of her MDS and only give her Bactrim. We could consider fosfomycin give her 300 mg tomorrow and then repeat the treatment every 3 days for 3 more doses. Qualifiers: Urinary tract infection type: site unspecified Hematuria presence: without hematuria Qualified Code(s): N39.0 - Urinary tract infection, site not specified (2) Myelodysplastic syndrome, unspecified: Status: Chronic Assessment and plan: Patient has responded to the filgastrim. ANC is stable. no need for further doses of filgastrim. Will monitor daily CBC (3) Acute kidney injury superimposed on chronic kidney disease: Status: Acute Assessment and plan: Acute kidney injury resolved. She is back to her baseline creatinine level. She slightly hypervolemic and requires short course of IV diuretics. I will give her a single dose of Lasix this afternoon and put her back on her hydrochlorothiazide starting tomorrow. (4) Anemia: Status: Chronic Assessment and plan: s/p transfusion of 2 units of PRBC on 11/07. stable hemograms Qualifiers: Anemia type: bone marrow failure Bone marrow failure anemia type: unspecified bone marrow failure Qualified Code(s): D61.9 - Aplastic anemia, unspecified (5) Edema due to hypervolemia: Status: Acute Assessment and plan: Patient will receive Lasix 20 mg IV push and then restart her hydrochlorothiazide 25 mg daily (6) Dehydration: Status: Resolved Assessment and plan: as above (7) DVT prophylaxis: Status: Acute Assessment and plan: TEDS and SCD; not candidate for enoxaparin d/t her p ancytopenia and dropping platelet counts. Subjective Subjective Interval history since last seen: Patient is feeling markedly better today. She has had no fever today. Her only concern is that she is having some peripheral edema and her feet and lower legs. She was asking why she was taken off her hydrochlorothiazide. Explained to her and her daughter, Lashawn, who is here visiting the patient today that hydrochlorothiazide was withheld initially because she had acute kidney injury from dehydration and poor oral intake. However with the IV resuscitation and the blood transfusion she has become a little volume overloaded. I did a yeieh-vj-lepl ultrasound of her lungs and she has diffuse bilateral B-lines. Her nurse indicated that this morning she was put on supplemental oxygen because of a low oxygen saturation in the mid to high 80s that came up into the low 90s. Order to give her a dose of IV Lasix and put her back on hydrochlorothiazide. Her blood counts are down slightly from yesterday with her WBC at 1750 hemoglobin 8.8 g and platelet count 66,000. Overall this is not significantly changed from the last couple days and I told her she does not need another dose of filgrastim at this point and does not need another transfusion at this point. As far as her renal function her BUN is down to 21 and creatinine is at 1.3. This is a improvement of her admission creatinine 1.7 and BUN of 24. Exam Narrative Exam Narrative: Elderly female sitting up on the bedside commode alert and oriented cheerful and smiling with no acute complaints other than the leg edema. Presently she is not dyspneic. Lungs with bibasilar rales no rhonchi or wheezes Heart is regular rate and rhythm Abdomen soft and nontender Lower extremities with a trace to 1+ pitting edema of her feet and ankles. Objective Last Vital Signs Temp 37.2 C 11/10/20 04:57 Pulse 116 H 11/10/20 03:57 Resp 20 11/10/20 03:57 BP 152/95 H 11/10/20 03:57 Pulse Ox 95 11/10/20 03:57 Laboratory Results - last 24 hr 11/10/20 11/10/20 11/10/20 09:00 09:00 09:00 WBC 1.75 L* RBC 2.56 L Hgb 8.8 L Hct 25.8 L MCV 100.8 H MCH 34.4 H MCHC 34.1 RDW 25.2 H Plt Count 66 L MPV 11.0 Immature Gran % 0.0 Neutrophils % 68.0 Band Neutrophils % 3 Lymphocytes % 21.0 Monocytes % 6.0 Eosinophils % 2.0 Basophils % 0.0 Nucleated RBC % 0 Absolute Neutrophils 1.24 Absolute Lymphocytes 0.37 L Absolute Monocytes 0.11 Absolute Eosinophils 0.04 Absolute Basophils 0.00 RBC Morphology See Below Anisocytosis 2+ Sodium 134 L Potassium 3.8 Chloride 103 Carbon Dioxide 19.0 L Anion Gap 12.0 H BUN 21 H Creatinine 1.3 H Estimated GFR/1.73 m2 39.02 Glucose 137 H Calcium 8.8 Total Bilirubin 1.3 H Conjugated Bilirubin 0.7 H AST 39 H ALT 58 Alkaline Phosphatase 93 C-Reactive Protein 21.78 H Total Protein 7.1 Albumin 2.9 L Reviewed Pertinent PMH: Yes Objective Narrative Objective Narrative: Labs reviewed. [id number] ultrasound of her lungs was performed demonstrated diffuse bilateral B-lines in both lower lobes as well as both mid and upper lobes. No pleural effusions were seen no consolidation was seen.
--- NOTE | 2020-11-10 15:18 | CMPROGNOTE_ITS ---
Care Management Progress Note S/O: Marysol was lying in bed when CM met with her. She reported SOB is limiting her mobility, but feels better otherwise. She reports being fully independent at home in the community prior to admission. She reports last Monday, going to get her groceries, it was a very hot day and when going up her stair climber, being dizzy and then vomiting; she attributes this as the cause of her admission. CM continues to follow. A: 84 year old admitted to [facility] 11/10/20 for UTI, Dehydration, hyperkalemia, TAPAN, and CKD P: Marysol will either return home with new home health services or reports she will stay with her daughter Lashawn in [place] if SNF if recommended. She will transport via private vehicle with family. CM continues to follow.
--- NOTE | 2020-11-10 15:53 | PT.INTREAT ---
Date of service: 11/10/20 Time of Service: 15:53 PT Notes Visit Reasons: UTI, Dehydration with Hyperkalemia, TAPAN and CKD Physical Therapy Treatment Note SUBJECTIVE: Out of breath. Per patient and daughter, patient just got back to bed to rest. Agreeable to having PT came back an hour after to allow patient to rest. On the second attempt later in the afternoon, patient was ready to participate in therapy. OBJECTIVE: TRANSFERS Supine to sit: Independent Sit to supine: Independent Sit to stand: Supervision Stand to sit: Supervision GAIT Device: FWW Weight bearing: Full Assist: SBA Distance 120 feet + 100 feet Deviation: 1 seated rest, was saturating at 98% on 2 L so Nurse Crystal and PT decided to turn the oxygen down to O L while walking. Maria Antonia needed to sit down and was out of breath and desaturated to 89% with HR increasing to 109-110 bpm. Oxygen was titrated back up to 1 L which maintained patient's saturation between 92% through 94% throughout the rest of the walking activity. ASSESSMENT: Patient needed oxygen supplementation today per Nurse Crystal as she was demonstrating desaturation episodes earlier. May benefit from PT services once cleared to go home by . PLAN: Continue with current POC to achieve initially established goals. Treatment time: [id number] x 25 minutes beginning at 15:53 PM.
[2020-11-10] MEDS: Furosemide 20 MG/2 ML VIAL IVP (15:55)
[2020-11-10] MEDS: hydroCHLOROthiazide 25 MG TAB PO (15:55)
[2020-11-10 17:13] VITALS: BP 178/110; PULSE 93; RESP 18; TEMP 37.1; O2SAT 98
[2020-11-10] MEDS: hydrALAZINE 20 MG/ML VIAL 10 MG IVP (18:28)
[2020-11-10 20:08] VITALS: BP 170/105; PULSE 110; RESP 18; TEMP 37; O2SAT 97
[2020-11-10] MEDS: Normal Saline 500 ML 30 ML IV (20:35)
[2020-11-10] MEDS: Carvedilol 6.25 MG TAB PO (20:36)
[2020-11-10] MEDS: Normal Saline Flush 10 ML SYR IVP (20:42)
[2020-11-10] MEDS: Zolpidem 6.25 MG TABCR PO (21:22)
[2020-11-11 00:32] VITALS: BP 138/70; PULSE 81; RESP 28; TEMP 37.1; O2SAT 94
[2020-11-11 03:31] VITALS: BP 160/70; PULSE 98; RESP 17; TEMP 37.4; O2SAT 96
[2020-11-11 04:35] VITALS: TEMP 37.1
[2020-11-11] MEDS: MEROPENEM 1 GM in Normal Saline 100 ML IVPB (08:04)
[2020-11-11] MEDS: hydroCHLOROthiazide 25 MG TAB PO (08:05)
[2020-11-11] MEDS: Carvedilol 6.25 MG TAB PO (08:05)
[2020-11-11] MEDS: Magnesium Lactate-SR 84 MG TABCR PO (08:05)
[2020-11-11] MEDS: Cyanocobalamin 500 MCG TAB 1000 MCG PO (08:05)
[2020-11-11] MEDS: Ascorbic Acid 500 MG TAB PO (08:06)
[2020-11-11] MEDS: Omeprazole 20 MG CAPCR PO (08:06)
[2020-11-11] MEDS: Multivitamin w/Minerals TAB 1 TAB PO (08:06)
[2020-11-11] MEDS: Valsartan 80 MG TAB PO (08:06)
[2020-11-11 10:13] VITALS: BP 166/92; PULSE 98; RESP 22; TEMP 37.1; O2SAT 99
[2020-11-11 11:19] VITALS: BP 148/70; PULSE 81; RESP 18; TEMP 37.1; O2SAT 97
[2020-11-11 11:29] VITALS: PULSE 116; PULSE 87; PULSE 97; RESP 16; RESP 20; O2SAT 91; O2SAT 95; O2SAT 97
[2020-11-11 12:28] LABS: Anion Gap 12.4 mmol/L (3-11); BUN 26 mg/dL (7-18); CO2 21.6 mmol/L (21.0-32.0); CREATININE 1.3 mg/dL (0.55-1.02); Calcium 8.4 mg/dL (8.5-10.1); Chloride 99 mmol/L (98-107); Estimated GFR 39.02 (mL/min/1.73m2); Glucose 116 mg/dL (74-106); Potassium 3.7 mmol/L (3.5-5.1); Sodium 133 mmol/L (136-145)
--- NOTE | 2020-11-11 15:29 | DSE_ITS ---
Date of service: 11/11/20 Time of Service: 15:30 DS: Diagnosis Discharge Diagnosis (1) UTI (urinary tract infection): Status: Acute Asessment and Plan: UTI with no evidence of pyelonephritis or renal ab scess or stones as demonstrated by negative ultrasound of his kidneys. Urine culture positive for E. coli with multiple antibiotic resistance with this. Patient treated for 3 days with cephalosporins including initially cefepime and then ceftriaxone and subsequently treated last 2 days with meropenem. Patient has been discharged with a prescription for fosfomycin 3 g p.o. every 3 days x3 doses. Repeat urinalysis should be obtained in 2 weeks. (2) Myelodysplastic syndrome, unspecified: Status: Chronic Asessment and Plan: Patient had an exacerbation of her myelodysplasia which necessitated single dose of TBO-filgastim w/ subsequent recovery of her ANC. See below for details (3) Acute kidney injury superimposed on chronic kidney disease: Status: Acute Asessment and Plan: TAPAN in setting of CKD. resolved w/ hydration. (4) Anemia: Status: Chronic Asessment and Plan: chronic anemia d/t MDS. required transfusion of 2 units of PRBC. See hospital course below. repeat CBC in 1 to 2 weeks (5) Essential hypertension: Status: Chronic Asessment and Plan: uncontrolled. patient's antihypertensive regimen switched to combination of Diovan and coreg. See below (6) Edema due to hypervolemia: Status: Acute Asessment and Plan: volume overload secondary to initially iv fluids resuscitation and transfusions. responded to iv lasix. (7) Dehydration: Status: Resolved Asessment and Plan: TAPAN resolved w/ iv hydration. (8) Hypomagnesemia: Status: Resolved Asessment and Plan: repleted w/ iv supplementation. may need assisted oral supplements if patient remains on diuretics Discharge Plan Disposition Patient Disposition: HOME Condition: Good Discharge Details Reason For Visit: UTI, Dehydration with Hyperkalemia, TAPAN and CKD Admit Date/Time: 11/06/20 13:54 Admit Provider: Gretchen Mas Attending Provider: Gretchen Mas Primary Care Provider: Lindsay Diaz Hospital Course Hospital Course: 84-year-old female with past medical history of myelodysplastic syndrome, chronic kidney disease stage III, essential hypertension, hyperlipidemia presented emergency department 2020 with complaints of weakness poor appetite headache and right ear pain. She also describes an episode that sound like possible syncopal spell associated with vomiting is no history of trauma. She is also has increased urinary frequency but no dysuria. Patient is fully vaccinated with Materna vaccine and sent notes COVID-19 exposure. Evaluation in the ER it sounds that she had a urinary tract infection and was dehydrated with acute kidney injury in the setting of chronic kidney disease hypercalcemia and pancytopenia. She was febrile with a temperature of 38.1 and tachycardic with a heart rate 115. Admitting labs demonstrated pancytopenia with a white count 1400, hemoglobin 8.3 g, platelet count 106,000 with an ANC of 750. CMP demonstrated hyponatremia with a serum sodium of 130 chloride 95 BUN of 24 creatinine 1.7 and magnesium of 1.5 total bilirubin 1.4 with normal AST ALT and alkaline phosphatase. Serial troponin levels were less than 0.05. Calcium level was elevated at 10.5 with a normal albumin level of 4. Subsequent 25 hydroxy vitamin D level was obtained and found to be slightly elevated at 104.7. Urinalysis was abnormal with cloudy urine with 100 mg/dL protein positive nitrites small amount leukocyte esterase greater than 50 white cells and many bacteria. Blood and urine cultures were obtained blood cultures came back no growth. Urine culture grew E. coli which was resistant to ampicillin, ampicillin/sulbactam, ciprofloxacin, levofloxacin. He was sensitive to cephalosporins imipenem gentamicin tobramycin Bactrim and Zosyn. Patient was started on IV fluids and parenteral antibiotics including cefepime. She was on cefepime from November 06 through November 07, 2020 after which she was put on ceftriaxone. Mid day following admission her blood counts dropped further WBC of 770 had an ANC of 340 hemoglobin 6.7 g hematocrit 18.9% platelet count 81,000. Patient was transfused 2 units of packed red cells and was given TBO-Filgrastim 480 mcg on 11/07. Her counts subsequently came up the next day and on November 08, 2020 her hemoglobin is 9.6 g hematocrit 27% and her total WBCs were 2220 with an ANC of 1620. She was taken out of neutropenic precautions. She continued to have fever spikes up to 38.7 through November 09. At which point she was put on meropenem out of concern that she may have an ESBL organism. Eventually urine culture came back positive for E. coli and reportedly was sensitive to cephalosporins with an ISRAEL of less than 1 to ceftriaxone. However the ISRAEL for him to 10 was less than 0.25. Renal ultrasound was performed on November 09 to rule out pyelonephritis or renal abscess or stones. She had no significant focal findings in his kidneys. Right kidney measured 9.8 cm in length and has normal cortical thickness and normal corticomedullary differen tiation with no masses no calculi and no hydronephrosis. Left kidney measures 9.5 cm and he can shows no significant parenchymal abnormalities and no stones no hydronephrosis. It is noted that she has some voiding issues for the bladder ultrasound prevoid volume was only 157 mL and she was unable to void post void measurements. As part of her work-up in the emergency department she had a chest x-ray and CT of her head without contrast. CT head was done because of her reported history of syncope and headache that showed no acute intracranial findings. She did have evidence of frontal sinusitis. Chest x-ray showed no acute pulmonary findings. Her renal function improved since her BUN of 24 and creatinine 1.3 on the day following admission. Creatinine remained at 1.3 throughout rest of her hospital stay. On the day prior to discharge she had some mild dyspnea and was found to have some mild congestive changes on physical exam with increased rales and she was requiring some supplemental oxygen. [id number] ultrasound of her lungs was performed and demonstrates diffuse bilateral B-lines. Patient was given a dose of furosemide 20 mg IV. Blood pressure is also noted to be markedly elevated and she was given a dose of hydralazine. Of note her hydrochlorothiazide has been withheld on admission because of the acute kidney injury. However her losartan was never discontinued. Throughout her hospital stay her blood pressure was significantly elevated with systolic pressures running in the 160s to 170s diastolic pressures ranging between 80s-100s. Repeat blood pressure on November 10 was 178/110 at which point she was given the Lasix and hydralazine. Patient's losartan was switched to Diovan and she was put on carvedilol as well. Her hydrochlorothiazide was resumed. Diovan and carvedilol started on November 09 but was uptitrated on November 10. On the day of discharge patient was feeling markedly better and has remained afebrile for over 24 hours. At the time of discharge her electrolytes had normalized and her BUN and creatinine were stable at 26 and 1.3 blood counts is stabilized with a white count of 1750 hemoglobin 8.8 g platelet count 66,000 and ANC of 1240. Patient was discharged home on a new prescription of valsartan 80 mg daily along with carvedilol 6.25 mg p.o. twice daily for hydrochlorothiazide 25 mg daily was resumed. She was given further antibiotic prescription of fosfomycin 3 g to be taken x1 dose and then repeat that dose every 3 days for total of 3 days. She should have a follow-up urinalysis in a couple weeks along with repeat BMP and CBC in 1 to 2 weeks. Home Meds and New Rx's Prescriptions: New carvedilol 6.25 mg tablet 6.25 mg PO BID Qty: 60 RF: 0 valsartan [Diovan] 80 mg tablet 80 mg PO DAILY Qty: 30 RF: 1 carvedilol 6.25 mg tablet 6.25 mg PO BID Qty: 60 RF: 1 fosfomycin tromethamine 3 gram packet See Rx Instructions .ROUTE .COMPLEX Qty: 3 RF: 0 Continued Ensure Liquid PO DAILY RF: 0 magnesium L-lactate 84 mg tablet extended release 84 mg PO BID Qty: 180 RF: 3 hydrochlorothiazide 25 mg tablet 25 mg PO DAILY Qty: 90 RF: 4 cyanocobalamin (vitamin B-12) [Vitamin B-12] 1,000 MCG tablet 1,000 mcg PO DAILY RF: 0 One Daily For Women 1 EACH tablet 1 ea PO DAILY RF: 0 ascorbic acid (vitamin C) [Vitamin C] 500 MG tablet 500 mg PO DAILY RF: 0 omeprazole 20 mg capsule,delayed release(DR/EC) 20 mg PO DAILY Qty: 90 RF: 3 calcium carbonate 500 mg calcium (1,250 mg) tablet 1,000 mg PO DAILY RF: 0 cholecalciferol (vitamin D3) [Vitamin D3] 50 mcg (2,000 unit) capsule 250 mcg PO DAILY RF: 0 Discontinued losartan 100 mg tablet 100 mg PO DAILY Qty: 90 RF: 3 Discharge Instructions Instructions: Myelodysplastic Syndromes (DC), Myelodysplastic Syndromes (GEN), Urinary Tract Infection in Older Adults (DC) Stand Alone Forms: Nursing Discharge Form Referrals: Lindsay Diaz NP [Primary Care Provider] - 11/23/20 9:15 am Activity:: Activity as Tolerated Equipment/Supplies:: No Equipment Needed Diet:: Low Sodium Discharge Orders Discharge Orders: Discharge Order (Routine); Ordered 11/11/20 Ordered By: Kyree Cummins Other Ambulatory Orders: Basic Metabolic Panel (Routine) Timeframe: 1 Day Facility: [facility] - Location: Laboratory Outpatient Ordered By: Kyree Cummins Complete Blood Count w/Diff (Routine) Timeframe: 1 Week Facility: [facility] - Location: Laboratory Outpatient Ordered By: Kyree Cummins Discharge Data Discharge Date/Time-TO BE ENTERED AT DEPARTURE: 11/11/20 17:19 DS: Summary Time Spent with Patient providing and/or coordinating discharge services: Greater than 30 minutes Status at Discharge Functional status at discharge: independent ambulation Overall status at discharge: patient is back to baseline Mental Status: mental status grossly normal Speech and Movement: speech and movement normal Mood: congruent mood Affect: normal affect Exam Narrative Exam Narrative: White female sitting up at the bedside smiling. Patient states she feels markedly better. No fevers overnight. No dyspnea. Patient has been weaned off oxygen since last night. Patient went for walks with physical therapy and respiratory therapy in the past for amatory pulse oximetry test. Lungs are clear anteriorly she has some faint bibasilar rales no rhonchi or wheezes. Heart regular rate and rhythm Abdomen soft and nontender Flank is nontender to palpation Extremities without peripheral cyanosis or edema Psych Mental Status: mental status grossly normal Speech and Movement: speech and movement normal Mood: congruent mood Affect: normal affect DS: Data Vitals/I&O Vitals and I&O: Vital Signs Temperature 37.1 C 11/11/20 11:19 Temperature Source Tympanic 11/11/20 11:19 Pulse 81 11/11/20 11:19 Pulse Rhythm Regular 11/11/20 10:13 Pulse 83 11/06/20 11:30 Respiratory Rate 18 11/11/20 11:19 Respiratory Effort Non-Labored 11/11/20 10:13 Respiratory Depth Normal 11/11/20 10:13 Respiratory Pattern Normal 11/11/20 10:13 Blood Pressure 148/70 H 11/11/20 11:19 Blood Pressure Position Supine 11/06/20 09:49 Pulse Oximetry 97 11/11/20 11:19 Oxygen Delivery Method Room Air 11/11/20 11:19 Oxygen Flow Rate 0 11/11/20 11:19 Pain Level 0 11/11/20 11:19 Comment 11/11/20 03:31 Intake & Output 11/10/20 11/11/20 11/11/20 23:59 11:59 23:59 Intake Total 882.5 / 1122.5 350 / 590 240 / 590 Output Total 1850 / 2150 975 / 975 Balance -967.5 / -1027.5 -625 / -385 240 / -385 Weight 63.2 kg Intake: IV 222.5 / 222.5 Oral 660 / 900 350 / 590 240 / 590 Output: Urine 1850 / 2150 975 / 975 Other: Urine Color Yellow Yellow Urine Appearance Clear Clear Urine Odor Normal Normal Stool Occult Blood Negative Stool Size Small Stool Characteristics Soft Voiding Methods Bedside Commode Bedside Commode Data Completed and Pending Labs on day of discharge: Labs from last 24 hours 11/11/20 12:00 Sodium 133 L Potassium 3.7 Chloride 99 Carbon Dioxide 21.6 Anion Gap 12.4 H BUN 26 H Creatinine 1.3 H Estimated GFR/1.73 m2 39.02 Glucose 116 H Calcium 8.4 L PFSH Medical History (Updated 11/12/20 @ 08:34 by Kyree Cummins) Anemia BCC (basal cell carcinoma of skin) 06/14/15 Dr Ba-Right nasal sidewall 12/2017 Dr Ba-right inferior nasal alar sill Chronic kidney disease, stage III (moderate) (07/24/12) onset 2006; renal US 12/2008 WNL Esophageal reflux (07/01/11) Essential hypertension (12/20/12) FRS 28%; white coat effect HLD (hyperlipidemia) HTN (hypertension) Humeral fracture (06/04/15) displaced 2 part fracture proximal right humerous Hyperlipidemia (07/01/11) 2014 PCEq 28% LDL baseline 188, declines statins Hypomagnesemia (07/04/14) on HCTZ Leukopenia (06/06/14) Dr Jaramillo [facility]: ?early myelodysplasia: CBC q6m Osteoporosis, unspecified (07/01/11) DEXA 2004 spine T -3.7, hip T -1.7; intolerant alendronate; 2015 reluctant re meds Pancytopenia SCCA (squamous cell carcinoma) of skin 12/2017 Dr Ba right anterior charles Syncope (02/10/14) Surgical History Extraction of cataract (04/30/13) left eye Pacemaker (10/27/15) Dr. Hobson [facility] [place] Family History Father Heart disease Social History Smoking/Tobacco Use Status: Never Smoking risk assessment performed?: Yes Alcohol Intake: current Alcohol Intake frequency: 0-2 drinks per day Drug use: Never Substance use type: does not use Household members: none Housing: house Number of Children: 4 Communication Needs: Corrective Lenses Do you need help understanding health information?: Rarely current occupation: retired Pets and animals: Yes Pets and animals: cat(s) What type of physical activity do you participate in: bicycling, regular exercise and other Details: stationary bike Duration: < 15 minutes/day Frequency: daily Seatbelt use: always Drive intox or ride w/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
--- NOTE | 2020-11-11 15:40 | PTTR_ITS ---
PT Notes Visit Reasons: UTI, Dehydration with Hyperkalemia, TAPAN and CKD 11/11/2020 SUBJECTIVE: Marysol stating she feels good today. Agreeable to PT treatment. OBJECTIVE: TRANSFERS Supine to sit: I Sit to supine: I Sit to stand: I Stand to sit: I GAIT Device: FWW Weight bearing: Full Assist: SBA Distance: 75'x2 Deviation: Sit rest break, 1 L NC, energy conservation and proper breathing techniques. VITALS: 1 L NC Sa02 range 94%-98%, HR range 75 b/m-106 b/m. ASSESSMENT: Tolerates ambulation well without decrease in oxygen saturation. She feels much more comfortable with short bouts of ambulation and performing this multiple times vs. long distance 1x. No LOB with her gait using FWW. PLAN: Pt will be discharged home with daughter later today. See discharge summary for details. Direct time: 20 minutes ([id number]) Nidia Meraz PTA Clinic location: [facility] [place], [place]
--- NOTE | 2020-11-11 17:51 | CMDISCH_ITS ---
- If Service Date Differs Date of service: 11/11/20 Time of Service: 17:52 LACE Index Scoring Tool - Questions: Length of Stay (in days): 4 - 6 Acuity (Admit via E.D.?): Yes Comorbidities: Liver or Renal Disease E.D. Visits: 1 - Answers: Total Score: 13 Risk of Readmission: High Risk Care Management Discharge Reason for Hospitalization: UTI, Dehydration with hyperkalemia, TAPAN and CKD Discharge Plan: Marysol will return home with her daughter Lashawn in [place] upon discharge. She will transport via private vehicle with her daughter. Patient/Family Education Needs: Review discharge instructions, discuss Ask Me Three.
--- NOTE | 2020-11-13 17:23 | PT.INDS ---
Date of service: 11/13/20 Time of Service: 17:23 PT Notes Visit Reasons: UTI, Dehydration with Hyperkalemia, TAPAN and CKD Physical Therapy Inpatient Discharge Summary Date: 11/13/2020 Date of service: 11/07/2020 through 11/11/2020 This is a clinical summary of care provided for the duration of dates listed above. No charge was made in the completion of this documentation. Referring Doctor: Dr. Gretchen Mas PT Orders: PT CONSULT: Limited ability Precautions: Reverse precautions secondary to blood condition Patient Profile/Admitting Diagnosis: Patient is an 84-year-old female referred for evaluation and treatment planning secondary to hospital admittance. Patient came to the ED on 11/06/2020 complaining of not feeling well, weakness and poor appetite with a right-sided headache. PMHX: Medical History Anemia BCC (basal cell carcinoma of skin) 06/14/15 Dr Ba-Right nasal sidewall 12/2017 Dr Ba-right inferior nasal alar sill Chronic kidney disease, stage III (moderate) (07/24/12) onset 2006; renal US 12/2008 WNL Esophageal reflux (07/01/11) Essential hypertension (12/20/12) FRS 28%; white coat effect HLD (hyperlipidemia) HTN (hypertension) Humeral fracture (06/04/15) displaced 2 part fracture proximal right humerous Hyperlipidemia (07/01/11) 2013 PCEq 28% LDL baseline 188, declines statins Hypomagnesemia (07/04/14) on HCTZ Leukopenia (06/06/14) Dr Jaramillo [facility]: ?early myelodysplasia: CBC q6m Osteoporosis, unspecified (07/01/11) DEXA 2004 spine T -3.7, hip T -1.7; intolerant alendronate; 2016 reluctant re meds Pancytopenia SCCA (squamous cell carcinoma) of skin 12/2017 Dr Ba right anterior charles Syncope (02/10/14) Surgical History Extraction of cataract (04/30/13) left eye Pacemaker (10/27/15) Dr. Hobson [facility] [place] Social History/Home Situation: Patient lives alone with her cat. Multilevel home with automated chairlift to get upstairs. Has 2 stairs into her dwelling with a railing. Current Functional Limitations: . Baseline is full functional ability without use of an assistive device. Equipment Owned/DME: None Subjective: NT. See most recent [employer]ST[employer]ER notes. Objective: General Observation: NT. See most recent [employer]ER notes. Mental Status: NT. See most recent [employer] FLOOR [employer]ER notes. ROM: Right Upper Extremity: Within functional limit Left Upper Extremity: Within functional limits Right Lower Extremity: Within functional limits Left Lower Extremity: Within functional limits Strength: Right Upper Extremity: 4/5 throughout upper extremity major muscle groups shoulder flexion, abduction, bicep and tricep. 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 Left Upper Extremity: 4/5 throughout upper extremity major muscle groups shoulder flexion, abduction bicep and tricep. 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 Right Lower Extremity: 4-/5 for flexion, quads, hamstrings, seated hip abduction and adduction Left Lower Extremity: 4-/5 hip flexion, quads, hamstrings, seated hip abduction and adduction Sensation: Intact sensation light touch bilateral lower extremities Bed Mobility/Transfers: Sit?stand: Independent Stand?sit: Independent Bed mobility: Independent Bed?chair: Independent Gait: Up to 75 feet x 2 using front wheel walker with full weightbearing requiring standby assist with oxygen supplementation of 1 L/min via NC. Balance: Static Sitting: Normal Dynamic Sitting: Normal Static Standing: Normal Dynamic Standing: Normal Assessment: Marysol demonstrates significant functional mobility improvement during this episode of care is goal status below and her mobility level above. Goals: Goals X1 week 1. Supine-Sit independent MET 2. Sit-Supine independent MET 3. Sit-Stand independent MET 4. Stand-Sit independent MET 5. Bed-Chair independent MET 6. Chair-Bed independent MET 7. Good static and dynamic standing balance/tolerance NOT MET DISCHARGE RECOMMENDATIONS: Home once medically cleared. TREATMENT CODE/TIME: NC Thank you for the opportunity to participate in the care of this patient. Marcy Yip PT, DPT, CLT [facility] [place], [place]
== END 2020-11-11 17:19 | disposition home or self-care (01) | DRG 683 ==
LOC: ER 16:05 → MS 18:27
PROVIDERS: Internal Medicine; Admitting Provider Internal Medicine; Emergency Provider Student in an Organized Health Care Education/Training Program; PCP Nurse Practitioner; Visit Provider Internal Medicine
DX: N17.9 Acute kidney failure, unspecified (principal); N39.0 Urinary tract infection, site not specified; E87.1 Hypo-osmolality and hyponatremia; D61.818 Other pancytopenia; D61.9 Aplastic anemia, unspecified; E83.42 Hypomagnesemia; M35.3 Polymyalgia rheumatica; D46.9 Myelodysplastic syndrome, unspecified; E78.5 Hyperlipidemia, unspecified; I12.9 Hypertensive chronic kidney disease with stage 1 through stage 4 chronic kidney disease, or unspecified chronic kidney disease; Z20.822 Contact with and (suspected) exposure to COVID-19; R55 Syncope and collapse; E86.0 Dehydration; E83.52 Hypercalcemia; N18.30 Chronic kidney disease, stage 3 unspecified; K21.9 Gastro-esophageal reflux disease without esophagitis; D70.9 Neutropenia, unspecified; M81.0 Age-related osteoporosis without current pathological fracture; B96.20 Unspecified Escherichia coli [E. coli] as the cause of diseases classified elsewhere; R60.0 Localized edema; J32.1 Chronic frontal sinusitis
CPT/HCPCS: 36415; 76770; 80048; 80053; 80076; 82306; 84145; 86850; 86900; 86901; 86920; 86945; 87040; 87077; 87635; 93005; 94618; 96361; 96365; 96367; 97162; 97530; 99285; 70450; 71046; 81003; 81015; 83605; 83735; 84443; 84484; 85025; 86140; 86644; 87086; 87186; 93010; 99223; 99232; 99239; J0131; J0360; J0696; J1941; J3475; J3490; P9016

== ENCOUNTER 2021-01-11 09:19 | Outpatient (RCR) | payer MEDICARE, BC, SELFPAY ==
[2021-01-11 11:40] LABS: Absolute Basophil Count 0.02 10^3/uL (0.0-0.2); Absolute Eosinophil Count 0.03 10^3/uL (0.0-0.7); Absolute Lymphocyte Count 0.68 10^3/uL (1.2-3.4); Absolute Monocyte Count 0.11 10^3/uL (0.1-0.8); Absolute Neutrophil Count 0.57 10^3/uL (1.2-6.7); Basophils % 1.4; Eosinophils % 2.1; HCT 22.5 % (36.0-46.0); HGB 7.7 g/dL (11.2-15.7); Lymphocytes % 48.2; MCH 38.3 pg (27.0-33.0); MCHC 34.2 % (32.0-36.0); MCV 111.9 fL (80-95); MPV 11.2 fL (8.0-11.0); Monocytes % 7.8; Neutrophils % 40.5; Nucleated RBC 0 %; RBC 2.01 10^6/uL (3.93-5.22); RDW 20.4 % (11.7-14.6); RDW-SD 80.5 fL
[2021-01-11 11:55] LABS: WBC 1.41 10^3/uL (4.4-10.8)
[2021-01-11 12:05] LABS: Anisocytosis 2+; Diff Comment Agrees w/ Instrument; Hypochromasia 2+; Macrocytosis 2+; Platelet Count 89 10^3/uL (130-400); Polychromasia Present
[2021-01-11 12:06] LABS: Poikilocytes 2+
[2021-01-11 13:49] VITALS: BP 130/72; PULSE 58; RESP 18; TEMP 36.4; O2SAT 97
[2021-01-11] MEDS: Normal Saline Flush 10 ML SYR IVP (13:52)
[2021-01-11 14:04] VITALS: BP 120/64; PULSE 60; RESP 20; TEMP 36.4; O2SAT 100
[2021-01-11 14:34] VITALS: BP 128/70; PULSE 62; RESP 18; TEMP 36.5; O2SAT 100
[2021-01-11 15:08] VITALS: BP 132/70; PULSE 62; RESP 18; TEMP 36.6; O2SAT 100
[2021-01-11 15:16] VITALS: BP 130/72; PULSE 62; RESP 18; TEMP 36.5; O2SAT 100
== END 2021-01-24 23:59 | disposition home or self-care (01) ==
LOC: INF 09:19
PROVIDERS: PCP Nurse Practitioner; Visit Provider Internal Medicine Hematology & Oncology
DX: D61.818 Other pancytopenia (principal)
CPT/HCPCS: 36415; 36430; 86850; 86900; 86901; 86920; 85025; P9016